=== PATIENT | female | born 1930 | race Caucasian/White ===

== ENCOUNTER 2016-12-29 15:48 | Inpatient (IN) | payer OTHER ==
[2016-12-29] MEDS ORDERED: LASIX IV ONE (16:19)
[2016-12-29 16:22] LABS: MANUAL DIFF NEEDED? NO
[2016-12-29 16:27] LABS: BASO% 0.2 % (0.0-0.8); EOS# 0.04 X1000 (0.0-0.7); EOS% 0.7 % (0.0-10.0); HEMATOCRIT 32.5 % (37.0-47.0); HEMOGLOBIN 11.1 g/dL (12.0-16.0); IMM GRAN# 0.02 X1000 (0.0-0.04); IMM GRAN% 0.3 % (0.0-0.5); LYMPH% 11.5 % (20.5-51.1); MCH 28.2 PG (27-31); MCHC 34.2 g/dL (33-37); MCV 82.7 FL (81-99); MONO# 0.78 X1000 (0.11-0.59); MONO% 12.8 % (1.7-9.3); MPV 8.5 FL (7.4-10.4); NEUT% 74.5 % (42.2-75.2); PLT 251 X1000 (130-400); RBC 3.93 XMIL (4.2-5.4)
[2016-12-29 16:35] LABS: INR 1.13; PTT 30.1 Seconds (22.0-36.0)
--- NOTE | 2016-12-29 16:40 | PROVIDER DOCUMENTATION ---
HPI-General Adult - General Source: patient - History of Present Illness -Gen Adult Nature of Presenting Problems: Reports to er with cc of edema. Pt was sent from pcp with complaints of gaining 30 lbs in 1 month. PCP . Pt reports bilateral hand swelling. Pt reports she would like to be a DNR. Denies sob,n,f,v. Reports is having weakness. Location of Pain/Injury: reports: generalized Quality of Pain: reports: none Severity: reports: severe Onset/Duration: reports: other (1mo) Timing: reports: still present Similar Symptoms Previously?: No Recently seen or treated by another doctor?: Yes - General Chief Complaint: Edema Stated Complaint: WEAKNESS,SOB,BILA HAND SWOLLEN Time Seen by Provider: 12/29/16 16:00 Allergies/Adverse Reactions: Patient Allergies Allergy/AdvReac Type Severity Reaction Status Date / Time No Known Allergies Allergy Verified 12/29/16 16:32 Home Medications: Home Medication List Medication Instructions Recorded Confirmed Last Taken Type Aspirin 81 mg PO DAILY 12/29/16 12/29/16 12/29/16 History Review of Systems - Adult - REVIEW OF SYSTEMS - ADULT Constitutional: reports: other (general weakness). denies: chills, fever, fatique, weight gain, weight loss Eyes: reports: no symptoms reported Ears, Nose, Mouth & Throat: reports: no symptoms reported Cardiovascular: reports: edema. denies: chest pain, irregular heart rate, orthopnea, syncope Respiratory: reports: no symptoms reported Gastrointestinal: denies: abdominal pain, diarrhea, nausea, vomiting Genitourinary: reports: no symptoms reported Musculoskeletal: reports: see HPI, other (edema). denies: joint pain, joint swelling, muscle weakness, neck pain Integumentary: reports: no symptoms reported Neurological: reports: no symptoms reported Psychiatric: reports: no symptoms reported Endocrine: reports: no symptoms reported Hematologic/Lymphatic: reports: no symptoms reported Allergic/Immunologic: reports: no symptoms reported All Other Systems: Reviewed and Negative Past History - Adult - PAST MEDICAL HISTORY-ADULT Review of Records: reports: Nursing Assessment Review, Medications Reviewed Major Childhood Illnesses: reports: denies history Cardiovascular: reports: A-Fib - PRIOR SURGERIES/PROCEDURES Surgical/Procedure History: reports: orthopedic (extremity) (left hip) - IMMUNIZATION STATUS Childhood Immunizations: See Nurse Assessment Flu Vaccine: See Nurse Assessment - FAMILY HISTORY Family History: reviewed, not pertinent - SOCIAL HISTORY Smoking: denies Substance Use: none/never Physical Exam-General - PHYSICAL EXAM-ADULT Initial Vital Signs Reviewed: Yes - CONSTITUTIONAL General Appearance: alert, mild distress. negative: appears well - EYES Eyes: PERRL/EOMI - HEAD, EARS, NOSE, MOUTH & THROAT HENMT: moist mucous membranes, normal ENT inspection, TMs normal, pharynx normal - NECK Neck: non-tender, full range of motion, supple, normal inspection - RESPIRATORY Respiratory: chest non-tender, no pleuratic chest pain, no respiratory distress , no accessory muscle use, decreased breath sounds - CARDIOVASCULAR Cardiovascular: regular rate, rhythm - GASTROINTESTINAL (ABDOMEN) Abdominal Exam: soft, no organomegaly, no pulsatile mass - MUSCULOSKELETAL Back Exam: normal inspection Extremity: normal range of motion, no calf tenderness, pedal edema, other ( bilateral hand and feet edema 4 plus) - SKIN Integumentary: normal color, normal turgor, warm/dry - NEUROLOGIC Neurologic: top executive II-XII nml as tested, grossly normal, no motor/sensory deficits - PSYCHIATRIC Psych/Mental Status: normal mood/affect, normal thought content, normal thought process, oriented x 3 Progress - PLAN OF CARE/RESULTS Progress/Plan/Lab Results: Orders Category Date Time Status Finley Cath Insertion ORDERED Care 12/29/16 16:19 Active cxr [CHEST-PORTABLE] [RAD] Stat Exams 12/29/16 16:17 Taken BNP [PRO B-NATRIURETIC PEPTIDE] Stat Lab 12/29/16 16:14 Received CBC WITH ELECTRONIC DIFF [HEME] Stat Lab 12/29/16 16:14 Completed CMP [COMPREHENSIVE METABOLIC PANEL] [CHEM] Stat Lab 12/29/16 16:14 Received PROTIME WITH INR [COAG] Stat Lab 12/29/16 16:10 Completed PTT [COAG] Stat Lab 12/29/16 16:10 Completed UA NIMS W/REFLEX CULT [URINALYSIS] Stat Lab 12/29/16 16:01 Uncollected Furosemide [Lasix] Med 12/29/16 16:19 Discontinued 40 mg IV NOW ONE EKG [EKG] Stat Ther 12/29/16 16:17 Ordered Vital Signs - 24 hr 12/29/16 15:56 Temperature 97.5 F L Pulse Rate 81 Respiratory 18 Rate Blood Pressure 156/109 O2 Sat by Pulse 100 Oximetry Laboratory Tests 12/29/16 12/29/16 12/29/16 16:10 16:14 16:14 WBC 6.10 RBC 3.93 L Hgb 11.1 L Hct 32.5 L MCV 82.7 MCH 28.2 MCHC 34.2 RDW Std Deviation 14.9 H Plt Count 251 MPV 8.5 Immature Gran % (Auto) 0.3 Neut % (Auto) 74.5 Lymph % (Auto) 11.5 L Bullitt % (Auto) 12.8 H Eos % (Auto) 0.7 Baso % (Auto) 0.2 Immature Gran # (Auto) 0.02 Neut # (Auto) 4.55 Lymph # (Auto) 0.70 L Bull[place] # (Auto) 0.78 H Eos # (Auto) 0.04 Baso # (Auto) 0.01 PT 12.0 H INR 1.13 PTT (Actin FS) 30.1 Sodium 116 L* Potassium 3.7 Chloride 79 L Carbon Dioxide 26 Anion Gap 11 BUN 14 Creatinine 0.5 Estimated GFR/1.73 m2 > 60 BUN/Creatinine Ratio 28 Glucose 132 H Calculated Osmolality 237 Calcium 8.2 L Total Bilirubin 0.85 AST 31 H ALT 19 Alkaline Phosphatase 113 H Ctb-B-Otfxqtaeyci Pept Total Protein 6.5 Albumin 3.4 L Globulin 3.1 Albumin/Globulin Ratio 1.1 12/29/16 16:14 WBC RBC Hgb Hct MCV MCH MCHC RDW Std Deviation Plt Count MPV Immature Gran % (Auto) Neut % (Auto) Lymph % (Auto) Bullitt % (Auto) Eos % (Auto) Baso % (Auto) Immature Gran # (Auto) Neut # (Auto) Lymph # (Auto) Bullitt # (Auto) Eos # (Auto) Baso # (Auto) PT INR PTT (Actin FS) Sodium Potassium Chloride Carbon Dioxide Anion Gap BUN Creatinine Estimated GFR/1.73 m2 BUN/Creatinine Ratio Glucose Calculated Osmolality Calcium Total Bilirubin AST ALT Alkaline Phosphatase Tdq-O-Ncsrsowiigl Pept 3373 H Total Protein Albumin Globulin Albumin/Globulin Ratio 1703 Dr.Quansah calvo - XRAY 1 XRAY: Bilateral XRAY Study: Chest Impression: Abnormal XRAY Interpretation: worse cardiomegaly and pleural effusions (yalowitz) - CONSULTS/PCP/HOSPITALIST Notification #1 *Consult/PCP/Hospitalist*: DR.Quansah Time Discussed: 17:08 Consult Disposition: Admit Departure - Departure Time of Disposition Order: 17:02 Certified Medical Emergency: Emergent - Departure DIAGNOSIS: Hyponatremia Edema Qualifiers: Edema type: unspecified Qualified Code(s): R60.9 - Edema, unspecified Atrial fibrillation Qualifiers: Atrial fibrillation type: chronic Qualified Code(s): I48.2 - Chronic atrial fibrillation Disposition: ADMITTED INPATIENT 09 Condition: Stable Referrals: Pretty Asif MD [Primary Care Provider] - Attestation - Scribe Verification/Attestation Scribe:: Mary Blevins Acting as Scribe for:: Juan Sheridan Scribe documention review:: This chart was documented by a scribe and accurately reflects the service the provider performed and the decisions made by the provider. Physician Attestation - Physician Attestation I, the provider, attest to the following statement:: Juan Sheridan Physician documentation Attestation:: This documentation recorded by the scribe accurately reflects the service I personally performed and the decisions made by me.
[2016-12-29 16:55] LABS: AGAP 11; ALBUMIN 3.4 g/dL (3.5-5.0); ALKALINE PHOSPHATASE 113 U/L (32-104); BUN 14 mg/dL (8-22); CALCIUM 8.2 mg/dL (8.8-10.2); CHLORIDE 79 mmol/L (98-107); COSMO 237; GOT 31 U/L (10-30); GPT 19 U/L (10-36); POTASSIUM 3.7 mmol/L (3.5-5.1); TCO2 26 mmol/L (25-35); TOTAL BILIRUBIN 0.85 mg/dL (0.20-1.00); TOTAL PROTEIN 6.5 g/dL (6.3-8.3)
[2016-12-29 16:59] LABS: SODIUM 116 mmol/L (136-145)
--- NOTE | 2016-12-29 17:03 | Diag Imaging Result Document ---
PROCEDURE NAME: CHEST-PORTABLE - 12/29/2016 PORTABLE CHEST: COMPARISON: 10/01/2016. FINDINGS: There is worsening cardiomegaly. There are new pleural effusions. Pulmonary vessels remain congested. IMPRESSION: Worsening cardiomegaly and pleural effusion.
[2016-12-29 17:15] LABS: URINE CULTURE NEEDED? NO; URINE SOURCE CLEAN CATCH
[2016-12-29 17:20] LABS: BILIRUBIN URINE NEGATIVE (NEGATIVE); BLOOD URINE NEGATIVE (NEGATIVE); COLOR YELLOW; GLUCOSE URINE NEGATIVE (NEGATIVE); LEUKOCYTES URINE NEGATIVE (NEGATIVE); NITRITE URINE NEGATIVE (NEGATIVE); PROTEIN URINE 200 mg/dL (NEGATIVE); SP GRAVITY URINE 1.027; TURBIDITY URINE HAZY (CLEAR); URINE MICRO REVIEW NEEDED? YES; UROBILINOGEN URINE 3 mg/dL (NORMAL)
[2016-12-29 17:24] LABS: UR EPITHELIAL CELLS <10 /HPF (<10); URINE BACTERIA NEGATIVE /HPF; URINE RBC <10 /HPF (<10); URINE WBC <10 /HPF (<10)
--- NOTE | 2016-12-29 17:27 | ED EKG INTERP ---
EKG Interpretation - EKG Time of EKG reading by physician:: 17:14 EKG Read and Signed by:: Juan Sheridan EKG Interpretation (*Must complete 3 of following elements*): Abnormal Rate: 79 Rhythm: afib [place]: right QRS: other (low voltage) ST Wave: non-specific ST changes Attestation - Scribe Verification/Attestation Scribe:: Mary Blevins Acting as Scribe for:: Juan Sheridan Scribe documention review:: This chart was documented by a scribe and accurately reflects the service the provider performed and the decisions made by the provider. Physician Attestation - Physician Attestation I, the provider, attest to the following statement:: Juan Sheridan Physician documentation Attestation:: This documentation recorded by the scribe accurately reflects the service I personally performed and the decisions made by me.
[2016-12-29 17:33] LABS: URINE CRYSTALS CA OXALATE PRESENT
[2016-12-29 18:21] LABS: UR CREAT RANDOM 187.3 mg/dL (11-20)
--- NOTE | 2016-12-29 18:52 | HISTORY AND PHYSICAL ---
PCP: Dr. Asif. CHIEF COMPLAINT: Weakness and swelling. HISTORY OF PRESENT ILLNESS: Mrs. King is an 86-year-old female who has a recently diagnosed history of atrial fibrillation and hypertension, she has a longstanding history of medical noncompliance. She saw us in September after she had an accidental fall and fractured her hip, at that time she was diagnosed with atrial fibrillation. She had successful hip fracture repair and was seen by Cardiology for her atrial fibrillation. At that time she had an echocardiogram which revealed severe tricuspid regurgitation and systolic pulmonary pressure of 113 mmHg giving her the diagnosis of severe pulmonary artery hypertension. When she was discharged in September she was discharged on Eliquis, Colace, Toprol and vitamin D, apparently the patient thinks that she does not have any medical problems and does not need to take any medications. At any rate, she went to Dr. Asif's office today because she has had progressive weakness unable to really walk around, she has reported shortness of breath and bilateral upper extremity edema. When she came to Dr. Asif's office Dr. Asif felt that the patient needed to come to the ER for evaluation. On arrival to the ER the patient had labs and diagnostics done. Her laboratory data was consistent with hypervolemic hyponatremia, mild anemia and an elevated proBNP. Chest x- ray showed severe cardiomegaly, pulmonary vascular congestion, bilateral pleural effusions consistent with congestive heart failure. Again the patient is quite agitated at her diagnosis, she believes that she does not have any medical problems and that she has been just fine and this is despite repeated attempts to explain diastolic heart failure and tricuspid regurgitation in a language that she can understand. We are now going to admit her for further treatment and evaluation. PAST MEDICAL HISTORY: 1. Chronic atrial fibrillation. 2. Medical noncompliance. 3. Untreated hypertension. 4. Severe pulmonary artery hypertension. 1. Severe tricuspid regurgitation. PAST SURGICAL HISTORY: Tonsillectomy, cataract surgery, bilateral vein stripping for varicose veins, left hip repair. SOCIAL HISTORY: Patient denies tobacco, alcohol or drug use. She is and lives with her daughter. FAMILY HISTORY: Significant for hypertension, cardiomegaly, brain cancer in her daughter who 2 years ago. HOME MEDICATIONS: Currently aspirin 81 mg daily although she was prescribed Eliquis, metoprolol and vitamin D. ALLERGIES: No known drug allergies. REVIEW OF SYSTEMS: A 10-point review of systems was obtained. The patient denies any subjective complaints. However her daughter reports progressive weakness and visible shortness of breath as well as generalized edema. The patient herself denies any chest pain or shortness of breath. She denies any weakness. No fever, chills, cough, congestion or other symptomatology. PHYSICAL EXAMINATION: VITAL SIGNS: Blood pressure is 156/109, heart rate 81, respiratory rate is 18, O2 saturation 100% on room air. Temperature is 97.5 degrees. GENERAL: This is a chronically ill and elderly appearing 86-year-old female lying in hospital bed in no acute distress. NEUROLOGIC: She is awake, alert and she is quite agitated. She is however unable to tell me what month it is, who the president is or what day of the week it is. She is able to tell me her name and the year. HEENT: Head is atraumatic and normocephalic. Pupils are equal, round, reactive to light. Oral mucosa is dry. Trachea is midline. There is obvious JVD and no bruits in the carotid arteries. CHEST: Bibasilar crackles. CV: Regular rate and rhythm. S1-S2 is noted. Diastolic murmur is appreciated at the level of 1 to 2/6. GI: Soft, nondistended, nontender. Bowel sounds are hypoactive. EXTREMITIES: Chronic venous stasis is noted and she has 1 to 2+ edema bilaterally. Pulses are palpable but diminished. DIAGNOSTIC DATA: Chest x-ray shows severe cardiomegaly with pulmonary vascular congestion and pleural effusions. EKG. Atrial fibrillation, rate controlled at 79 beats a minute with nonspecific ST changes. WBC 6.1, hemoglobin 11.1, hematocrit 32.5, platelet count 251,000. INR 1.13. Sodium 116, potassium 3.7, chloride 79, CO2 26, anion gap 11, BUN 14, creatinine 0.5, glucose 132, calcium 8.2, AST 31, ALT 19, alkaline phosphatase 113, proBNP 3373, albumin 3.4, TSH is 8.14, T4 is 4.86. Urinalysis shows 200 protein and calcium oxalate crystals present but nothing acute. ASSESSMENT/PLAN: 1. Severe diastolic heart failure: Secondary to her severe pulmonary artery hypertension, untreated hypertension and severe tricuspid regurgitation. Obviously the patient is going to need significant education and change to her medication regimen. For now we are going to start with light IV diuretics. We do not want to over diurese her given her diastolic heart failure and severe TR. We will monitor strict I's and O's and daily weights and we will get cardiology to consult for further management. We are also going to start her on low-dose digoxin and monitor telemetry and hemodynamics carefully. 2. Chronic atrial fibrillation: Rate is controlled. We will add digoxin and continue the Eliquis which was recommended by cardiology in September and get Cardiology recommendation. 3. Hypertension: For now we are going to add p.r.n. antihypertensives and defer cardiology for specific medication regimen. 4. Hypervolemic hyponatremia: This is certainly secondary to her congestive heart failure, we are going to lightly diuresis and check urine studies. We are going to follow her BMP every 6 hours to make sure we are not increasing her sodium too fast. 5. Subclinical hypothyroidism: TSH is 8, T4 is within normal range. Given her congestive heart failure symptoms, she could certainly stand to start on Synthroid. 6. Chronic anemia: Will check iron studies and treat appropriately. 7. Gastrointestinal prophylaxis will be provided with IV Protonix. Deep vein thrombosis prophylaxis with Eliquis. Further recommendations to follow. Dictated by ROHAN Rojas for Jose Carlos Tapia MD
[2016-12-29] MEDS ORDERED: APRESOLINE IV PRN (18:54)
[2016-12-29] MEDS ORDERED: DUONEB (A & A) INH PRN (18:54)
[2016-12-29] MEDS: DUONEB (A & A) INH SCH ×2 (19:27→23:30)
[2016-12-29 19:37] LABS: HEMOGLOBIN A1C 5.6 % (4.8-6.0)
[2016-12-29] MEDS: LANOXIN PO SCH (21:10)
[2016-12-29] MEDS: PROTONIX IV SCH (21:10)
[2016-12-29] MEDS: ELIQUIS PO SCH (21:10)
[2016-12-29 21:53] LABS: AGAP 15; BUN 12 mg/dL (8-22); CHLORIDE 80 mmol/L (98-107); COSMO 244; POTASSIUM 3.4 mmol/L (3.5-5.1); SODIUM 121 mmol/L (136-145); TCO2 26 mmol/L (25-35)
[2016-12-30 03:15] LABS: AGAP 14; BUN 11 mg/dL (8-22); CALCIUM 7.7 mg/dL (8.8-10.2); CHLORIDE 81 mmol/L (98-107); COSMO 244; POTASSIUM 3.5 mmol/L (3.5-5.1); SODIUM 121 mmol/L (136-145); TCO2 26 mmol/L (25-35)
[2016-12-30] MEDS: DUONEB (A & A) INH SCH ×6 (03:30→23:31)
[2016-12-30 07:23] LABS: HEMATOCRIT 29.5 % (37.0-47.0); HEMOGLOBIN 9.9 g/dL (12.0-16.0); MCH 27.8 PG (27-31); MCHC 33.6 g/dL (33-37); MCV 82.9 FL (81-99); MPV 8.7 FL (7.4-10.4); RBC 3.56 XMIL (4.2-5.4)
[2016-12-30 07:50] LABS: IRON SATURATION 5 %; TIBC 303 ug/dL
[2016-12-30 07:53] LABS: AGAP 12; BUN 11 mg/dL (8-22); CALCIUM 7.9 mg/dL (8.8-10.2); CHLORIDE 84 mmol/L (98-107); COSMO 249; HDL 78 mg/dL (45-65); LDL 51 mg/dL; POTASSIUM 3.5 mmol/L (3.5-5.1); SODIUM 124 mmol/L (136-145); TCO2 28 mmol/L (25-35); TOTAL IRON 15 ug/dL (49-151); TRIGLYCERIDES 46 mg/dL (35-135); UNBOUND IRON 288 ug/dL (112-346); VLDL 9 mg/dL
[2016-12-30] MEDS: ELIQUIS PO SCH ×2 (08:28→20:25)
[2016-12-30] MEDS: ASPIRIN PO SCH (08:28)
[2016-12-30] MEDS: LANOXIN PO SCH (08:28)
[2016-12-30] MEDS ORDERED: LASIX IV SCH (09:00)
[2016-12-30] MEDS ORDERED: SAMSCA PO ONE (10:50)
--- NOTE | 2016-12-30 11:39 | CONSULTATION ---
DATE OF CONSULTATION: 12/30/2016 IMPRESSION: 1. Atrial fibrillation, persistent. 2. Acute on chronic congestive heart failure of mixed etiology. The patient's congestive heart failure is largely right-sided heart failure in the setting of severe pulmonary hypertension. 3. Associated hyponatremia. 4. Congestive impairment. Suspect underlying dementia, although patient's cognitive impairment may be in part related to her hyponatremia and possible hypothyroidism. 5. Hypertension with blood pressure mildly elevated. RECOMMENDATIONS: 1. Diurese with intravenous Lasix. 2. Treat hyponatremia with [id number] mg daily. 3. Add long-acting diltiazem to improve rate control in patient with severe pulmonary hypertension. 4. Determine urine and serum osmolality and sodium levels. 5. If patient's congestive function fails to improve, may need to consider [facility] facility. 6. Given patient's functional impairment, age, and severe pulmonary hypertension, conservative cardiovascular management would appear to be most appropriate. 7. Anticoagulation with low-dose Eliquis appropriate given patient's thromboembolic potential in setting of atrial fibrillation. The patient has significant CHADS-VASc score. HISTORY: This 86-year-old female with past history of atrial fibrillation, hypertension, severe pulmonary hypertension, and medical noncompliance was admitted with weakness, atrial fibrillation, and significant edema. She has been found to have evidence of congestive heart failure and is in atrial fibrillation. She has been noncompliant with medications previously prescribed for hypertension and atrial fibrillation. She previously had been placed on low-dose Eliquis for thromboembolic risk protection. She relates that she has had recent weakness. She was seen by her primary care provider who noted her condition and sent her directly to the hospital for admission. The patient is not fully aware of her medical condition. She is somewhat confused, as well. She believes the month to be May, but she does know the correct year. She is not fully aware of why she is here. PAST MEDICAL HISTORY: 1. Atrial fibrillation, persistent. 2. Hypertension. 3. Severe pulmonary hypertension. 4. Congestive heart failure of mixed etiology both right-sided systolic and left ventricular diastolic. 5. Medical noncompliance. PAST SURGICAL HISTORY: Includes tonsillectomy, cataract surgery, bilateral vein stripping for varicose veins, and left hip repair. ALLERGIES: She has no known drug allergies. MEDICATIONS PRIOR TO ADMISSION: As listed. It is noteworthy that she was not taking prescribed medications. SOCIAL HISTORY: She is and lives with her daughter. She does not smoke or use alcohol. FAMILY HISTORY: Negative for premature coronary disease and positive for hypertension. REVIEW OF SYSTEMS: Pulmonary: Negative for orthopnea or cough. She relates weakness but no significant dyspnea. Gastrointestinal: Negative. Constitutional: Noteworthy for fatigue and weakness but otherwise negative. Remainder of review of systems negative/noncontributory with 14 total systems reviewed. PHYSICAL EXAMINATION: General: This is an elderly female in no distress. Vital signs: As recorded. She is noted to have hypertension with blood pressure 160/100. Heart rate is 80 to 85 and irregular. HEENT: Extraocular movements intact. Mucous membranes are moist. Neck: Supple. Jugular vein distention is present consistent with central venous pressure of 12 cm of more. Chest: Clear to auscultation. Cardiac: Reveals an irregular rate and rhythm without appreciable murmur or gallop. Abdomen: Soft and nontender. Extremities: Demonstrate 3+ pitting edema to the level of the thigh bilaterally. Neurologic: Exam reveals her to be alert. She is oriented to person, place, and year but not to the month. Memory is very sketchy. Speech is fluent. She moves all 4 extremities equally well. Skin: Warm and dry. Psychiatric: Exam reveals her mood to be appropriate. ECG: Demonstrates atrial fibrillation and low-voltage QRS. LABORATORY DATA: Noteworthy for hyponatremia with serum sodium of 116. BUN 14, creatinine 0.5. ProBNP is 3373. Albumin 3.4. Calcium 8.2. TSH is 8.14. IMAGING: Chest x-ray reports cardiomegaly and bilateral pleural effusions.
--- NOTE | 2016-12-30 11:44 | Diag Imaging Result Document ---
PROCEDURE NAME: US SOFT TISSUE HEAD NECK - 12/30/2016 THYROID ULTRASOUND: COMPARISON: None available. FINDINGS: At the inferior aspect of the left thyroid lobe, there is a hypoechoic round nodule measuring 1.0 x 0.8 x 0.7 cm. This may represent an enlarged parathyroid gland or an exophytic left thyroid lobe nodule. I suppose it could also represent a lymph node. The thyroid is, otherwise, homogeneous in echotexture with no other discrete cystic or solid lesion. The right thyroid lobe measures 2.9 x 1.0 x 1.0 cm. The left thyroid lobe measures 2.8 x 1.1 x 0.8 cm. IMPRESSION: Nonspecific round hypoechoic nodule at the inferior aspect of the left thyroid lobe that may represent an enlarged parathyroid gland. Please see the above discussion. Consider correlation with serum calcium studies.
[2016-12-30] MEDS: CARDIZEM CD PO SCH (12:14)
[2016-12-30 13:29] LABS: AGAP 12; BUN 11 mg/dL (8-22); CALCIUM 7.9 mg/dL (8.8-10.2); CHLORIDE 81 mmol/L (98-107); COSMO 246; POTASSIUM 3.3 mmol/L (3.5-5.1); SODIUM 122 mmol/L (136-145); TCO2 29 mmol/L (25-35)
--- NOTE | 2016-12-30 14:43 | Diag Imaging Result Document ---
PROCEDURE NAME: LUNG SCAN / VQ - 12/30/2016 VENTILATION PERFUSION LUNG SCAN: TECHNIQUE AND FINDINGS: Patient received 5.6 mCi of technetium-99m MAA for the perfusion portion of the study and 37.5 mCi of technetium-99m DTPA aerosol for the ventilation portion. Most recent previous chest radiograph is from 12/29/2016. There is no evidence of ventilation perfusion mismatch. No evidence of absolute segmental or subsegmental perfusion defects is present. There is some attenuation over the left lower lobe due to the large cardiomediastinal silhouette and apparent pleural effusion seen on the chest radiograph. IMPRESSION: Low probability for pulmonary embolus.
--- NOTE | 2016-12-30 14:49 | PROGRESS NOTE ---
DATE: 12/30/2016 SUBJECTIVE: Today, Ms. King referred to be doing okay. According to her, she does not have any medical problem and she really wants to go home. OBJECTIVE: Vital signs: Blood pressure is 134/77, pulse of 79, respirations 16 , temperature is 98.4 degrees. General: Ms. King is an 86-year-old female. She was in bed and seems to be in mild respiratory distress. HEENT: Mucosa is pink and moist. Anicteric. Acyanotic. Neck: Supple. There is positive JVD. Chest: Air entry is bilaterally reduced. There are some end-expiratory wheezes. Cardiovascular: Irregularly irregular heart rate but rate controlled. No murmurs. Abdomen: Distended but nontender. Bowel sounds are present. Extremities: About 4+ pedal edema. SIDE STAPLER: Patient is alert, oriented, but does not really seem to understand the gravity of her medical issues. LABORATORY DATA: WBC is 4.48, hemoglobin is 9.9, platelet count of 208,000. ESR 3. CRP is low. Sodium is 122 potassium is 3.2, chloride is 81, bicarbonate is 29 creatinine 0.4. ASSESSMENT: 1. Fluid overload likely due to congestive heart failure. 2. Severe pulmonary hypertension. Etiology is unclear. I think it is probably due to heart disease however patient also has remote history of smoking so some chronic obstructive pulmonary disease or primary pulmonary disease cannot be completely ruled out. 3. Diastolic heart failure due to atrial fibrillation. 4. Subclinical hypothyroidism. 5. Severe hyponatremia likely due to fluid overload. 6. Impaired cognition/judgment. 7. Folate deficiency. PLAN: 1. The patient has already been seen by Cardiology and has been given a dose of Samsca. We will follow up on her sodium levels. Because of the subclinical hypothyroidism we will going to do a thyroid scan to see if the patient has any goiter that would warrant treatment. 2. We will also do a TPO to see if she does have receptors to warrant treatment. 3. In terms of the severe pulmonary hypertension Cardiology has evaluated the patient and we will also do a V/Q scan to rule out possibility of chronic thromboembolic pulmonary hypertension (CTEPH). 4. Continue with the current recommendations from Cardiology and will give further recommendations during the hospital course. 5. We will also give folate supplements for the deficiencies. 6. We will consult Pulmonary Medicine also to evaluate the patient for the severe pulmonary hypertension. I will do BRENDA and inflammatory marker just to have baseline studies to make sure there is not any rheumatological/collagen and vascular etiology of this severe pulmonary hypertension. NYDIA
[2016-12-30] MEDS: LASIX IV SCH (18:46)
[2016-12-30] MEDS: SODIUM CHLORIDE 0.9% INJ SCH (18:46)
[2016-12-30] MEDS: PROTONIX IV SCH (18:46)
[2016-12-31] MEDS: LASIX IV SCH ×2 (01:37→09:46)
[2016-12-31] MEDS: DUONEB (A & A) INH SCH ×6 (03:21→23:17)
[2016-12-31 07:15] LABS: HEMATOCRIT 32.6 % (37.0-47.0); HEMOGLOBIN 10.6 g/dL (12.0-16.0); MCH 28.2 PG (27-31); MCHC 32.5 g/dL (33-37); MCV 86.7 FL (81-99); MPV 8.1 FL (7.4-10.4); RBC 3.76 XMIL (4.2-5.4)
[2016-12-31 07:47] LABS: AGAP 12; BUN 8 mg/dL (8-22); CALCIUM 8.1 mg/dL (8.8-10.2); CHLORIDE 89 mmol/L (98-107); COSMO 270; POTASSIUM 2.7 mmol/L (3.5-5.1); SODIUM 136 mmol/L (136-145); TCO2 35 mmol/L (25-35)
[2016-12-31] MEDS ORDERED: MAGNESIUM SULFATE 2 GM/S.W.I. 50 ML IV ONE (08:46)
[2016-12-31] MEDS ORDERED: KLOR-CON PO ONE (08:46)
[2016-12-31] MEDS: LANOXIN PO SCH (09:46)
[2016-12-31] MEDS: ELIQUIS PO SCH ×2 (09:46→21:21)
[2016-12-31] MEDS: ASPIRIN PO SCH (09:46)
[2016-12-31] MEDS: CARDIZEM CD PO SCH (09:47)
--- NOTE | 2016-12-31 12:24 | PROGRESS NOTE ---
DATE: 12/31/2016 Today Ms. King referred to be doing okay. Denies any pain. OBJECTIVE: Vital signs: Blood pressure is 139/72, pulse of 78, respirations 18, temperature is 98.1 degrees. General: Ms. King is an 86-year-old female. She is in bed, not seemingly distressed. HEENT: Mucosa is pink and moist. Anicteric. Acyanotic. Neck: Supple. Chest: Good air entry bilaterally. There are a few bibasilar crepitations. Cardiovascular: Irregularly irregular heart rate that is rate controlled. No murmurs. There is a pronounced P2. Abdomen: Soft, distended, but nontender. Bowel sounds are present. Extremities: About 3+ pedal edema. FOREIGN LAW CONSULTANT: Patient is alert, oriented to person and to place. Musculoskeletal: The lower extremities, the toes have changes consistent with osteoarthritis. LABORATORY DATA: CBC reviewed, unremarkable. Chemistry reviewed. Potassium is 3.7, sodium has normalized. It is 136 today. The thyroid peroxidase antibody is normal. ASSESSMENT: 1. Fluid overload likely due to congestive heart failure. 2. Severe pulmonary hypertension. Etiology is unclear. Patient has an echo in September 2016 which shows a pulmonary systolic pressure of 113 consistent with severe pulmonary hypertension. I think the etiology is probably related with heart disease. So far, the V/Q scan was unremarkable for any chronic thromboembolic events and the patient does not have a significant pulmonary disease. 3. Diastolic heart failure likely due to atrial fibrillation. 4. Subclinical hypothyroidism. Anti TPO is negative. Patient's cholesterol is normal. We would therefore just observe. 5. Severe hyponatremia with hypervolemia improving. 6. Impaired cognition likely from Alzheimer's. 7. Folate deficiency. We will continue to replace. In general, patient has a urine output of 12,900. I am not quite sure if this is a true documentation for a total negative balance of 17,350. Patient's current weight is 141, admission weight was 178. This is a net weight loss of 37 pounds. We will continue with her current medications and we will do strict I's and O's and repeat her lab works for tomorrow morning. I will consult social work for rehab placement on this patient.
[2016-12-31] MEDS: PROTONIX IV SCH (21:21)
[2017-01-01] MEDS: DUONEB (A & A) INH SCH ×6 (02:55→23:12)
[2017-01-01 07:58] LABS: HEMOGLOBIN 10.2 g/dL (12.0-16.0); MCH 27.9 PG (27-31); MCHC 31.9 g/dL (33-37); MCV 87.4 FL (81-99); MPV 8.4 FL (7.4-10.4); RBC 3.66 XMIL (4.2-5.4)
[2017-01-01 08:08] LABS: AGAP 6; BUN 9 mg/dL (8-22); CALCIUM 7.6 mg/dL (8.8-10.2); CHLORIDE 87 mmol/L (98-107); COSMO 255; POTASSIUM 3.5 mmol/L (3.5-5.1); SODIUM 127 mmol/L (136-145); TCO2 34 mmol/L (25-35)
[2017-01-01] MEDS ORDERED: KLOR-CON PO ONE (08:25)
[2017-01-01] MEDS ORDERED: MAG-OX PO ONE (08:26)
[2017-01-01] MEDS: ASPIRIN PO SCH (08:27)
[2017-01-01] MEDS: LASIX IV SCH (08:27)
[2017-01-01] MEDS: LANOXIN PO SCH (08:28)
[2017-01-01] MEDS: ELIQUIS PO SCH ×2 (08:28→20:31)
[2017-01-01] MEDS: CARDIZEM CD PO SCH (08:28)
--- NOTE | 2017-01-01 16:29 | PROGRESS NOTE ---
DATE: 01/01/2017 Today I saw Ms. King in the afternoon and she was actually eating her lunch without any problems. She refers to be doing fine. OBJECTIVE: Vital signs: Blood pressure is 136/76, pulse of 78, respirations 18 , temperature is 97.7 degrees. General: Ms. King is an 86-year-old, female. She was in bed. Not seemingly distress. HEENT: Mucosa is pink and moist. Anicteric. Acyanotic. Neck: Supple. Chest: A few bibasilar crepitations. Cardiovascular: Irregularly irregular heart rate. No murmurs. There was a pronounced P2. Abdomen: Soft, distended, but nontender. Bowel sounds are present. Extremities: About 2+ pedal edema. There are old scaly lesions on the lower extremity consistent with stasis dermatitis and also on the toes are consistent with severe osteoarthritis. Patient also has swelling on the left upper limb with some bruises medially on the arm which I think is consistent with where she had IV access and that got infiltrated. There is mild swelling of the right knee and limited ROM. No erythema. ASSESSMENT: 1. Fluid overload likely due to congestive heart failure. 2. Severe pulmonary hypertension. The etiology is unclear. I think is related to heart disease. So far, V/Q scan and other inflammatory markers seem to have been negative. 3. Diastolic heart failure. 4. Atrial fibrillation currently rate controlled. 5. Subclinical hypothyroidism with anti TPO negative. Cholesterol normal. 6. Severe hyponatremia on presentation. This has been improved. 7. Impaired cognition likely from mild Alzheimer's. 8. Folate deficiency. We will continue to replace. 9. Mild swelling to the left upper extremity secondary to infiltration from IV access. 10. Right Knee mild swelling likely from OA vs gout. PLAN: We will continue with the current medications. Patient is on Eliquis, digoxin, diltiazem, furosemide and PPI. She seems to be doing a whole lot better clinically. We will continued to monitor I's and O's and we will continue working with the social media manager for placement. Addendum: I spoke with the daughter on [phone] she expressed her concerns about her mum's knee and left arm swelling I told her the arm swelling is likely from iv access infiltration and as for the knee its possible it could be osteoarthritis or a flare of gout since patient was on high dosis of lasix. She was under impression that her mother knee hurts because she is been left in a place without movement since her mother has been admitted. She refers that anytime she comes to the hospital, she finds her mother in the same exact position. I told her, i cant certify the veracity in that since I see her mother for couple minutes only for the day. And that she could discuss that with her nurses. In any case, I told her I examined her mother's knee and didn't look septic nor broken and that my thought was like OA vs gout. I also told her if by the following day, the knee is getting worse, I will x-ray it and consult orthopedics MTDD
[2017-01-01] MEDS: MAG-OX PO SCH (20:31)
[2017-01-01] MEDS: SODIUM CHLORIDE 0.9% INJ SCH (20:32)
[2017-01-01] MEDS: PROTONIX IV SCH (20:32)
[2017-01-02] MEDS: DUONEB (A & A) INH SCH ×6 (03:30→23:23)
[2017-01-02 07:38] LABS: AGAP 12; BUN 12 mg/dL (8-22); CALCIUM 8.4 mg/dL (8.8-10.2); CHLORIDE 81 mmol/L (98-107); COSMO 251; POTASSIUM 3.2 mmol/L (3.5-5.1); SODIUM 124 mmol/L (136-145); TCO2 31 mmol/L (25-35); URIC ACID 2.4 mg/dL (2.4-5.7)
[2017-01-02] MEDS ORDERED: SAMSCA PO ONE (08:33)
[2017-01-02] MEDS ORDERED: KLOR-CON PO ONE (08:34)
--- NOTE | 2017-01-02 09:35 | Diag Imaging Result Document ---
PROCEDURE NAME: KNEE 1-2 VIEWS-RIGHT - 01/02/2017 RIGHT KNEE, 2 VIEWS: FINDINGS: There is apparent chondral calcinosis, although it is relatively faint. There are, otherwise, mild osteoarthritic changes. There is apparent thickening of the suprapatellar bursa which is suspicious for joint effusion. There is no fracture or dislocation identified. There are atherosclerotic calcifications noted. IMPRESSION: Apparent faint chondrocalcinosis. Mild osteoarthritic changes otherwise. Apparent joint effusion. No evidence of fracture or dislocation. [facility]rosclerotic calcifications noted. [facility]
[2017-01-02] MEDS: LANOXIN PO SCH (09:44)
[2017-01-02] MEDS: MAG-OX PO SCH ×2 (09:44→20:35)
[2017-01-02] MEDS: LASIX IV SCH (09:44)
[2017-01-02] MEDS: ELIQUIS PO SCH ×2 (09:45→20:34)
[2017-01-02] MEDS: ASPIRIN PO SCH (09:45)
[2017-01-02] MEDS: CARDIZEM CD PO SCH (09:45)
[2017-01-02] MEDS ORDERED: NAPROSYN PO SCH (10:00)
[2017-01-02] MEDS: CELEBREX PO SCH (10:48)
[2017-01-02] MEDS: PRILOSEC PO SCH ×2 (10:48→20:35)
--- NOTE | 2017-01-02 16:41 | PROGRESS NOTE ---
DATE: 01/02/2017 SUBJECTIVE: This morning I saw Ms. King. She was sitting up in her bed. She says she was doing a whole lot better. Did not have any pain in the leg and the shortness of breath has significantly improved. OBJECTIVE: Vital signs: Blood pressure 123/53, pulse of 64, respirations 18, temperature 97.9 degrees. General: Ms. King, 86 years old female. She was sitting up in the bed not in any distress. HEENT: Mucosa is pink and moist. Anicteric. Acyanotic. Neck: Supple. Chest: Good air entry bilateral. There are still a few bibasilar crepitations. Cardiovascular: Irregularly irregular but rate controlled. There is a pronounced P2 but no murmurs. Abdomen: Distended but nontender. Bowel sounds are present. Extremities: There is 1+ pedal edema. The right knee swelling yesterday has significantly improved. There was minimum pain on range of movement. There was also some erythematous changes in swelling over the medial aspect of the left arm where there was an IV access. ASSESSMENT: 1. Fluid overload likely due to congestive heart failure. 2. Severe pulmonary hypertension. Etiology is unclear. I think is related to her heart disease. 3. Diastolic heart failure. 4. Atrial fibrillation currently rate controlled. 5. Subclinical hypothyroidism. 6. Severe hyponatremia on presentation. This has improved. 7. Mild cognitive decline possibly Alzheimer's. 8. Folate deficiency. Will continue to replace. 9. Right knee minimally swollen. An x-ray of the knee shows that there is a faint chondrocalcinosis and mild osteoarthritis changes with thickening of the suprapatellar bursa suspicious for mild joint effusion. I think taking all together the patient has osteoarthritis of the joint as well as some chondrocalcinosis we will start the patient on Celebrex for pain control. 10. In terms of the hyponatremia, please note that the sodium level dropped slightly to 124 this morning so we will re-dose her with tolvaptan and recheck on her sodium tomorrow. 11. Mild swelling to the left upper extremity secondary to intravenous access infiltration. PLAN: In general I think Ms King is doing a whole lot better today. We are going to encourage PT and encourage the team to sit her up to chair. I am going to discontinue the Finley catheter. Will switch her IV Lasix to p.o. in anticipation for discharge. Will continue with the other care as per other subspecialties.
[2017-01-02 16:59] LABS: AGAP 11; BUN 13 mg/dL (8-22); CALCIUM 8.7 mg/dL (8.8-10.2); CHLORIDE 82 mmol/L (98-107); COSMO 255; POTASSIUM 3.6 mmol/L (3.5-5.1); SODIUM 126 mmol/L (136-145); TCO2 33 mmol/L (25-35)
[2017-01-02] MEDS: LASIX PO SCH (20:35)
[2017-01-03] MEDS: DUONEB (A & A) INH SCH ×3 (03:33→22:46)
[2017-01-03] MEDS: PRILOSEC PO SCH ×2 (06:06→21:29)
[2017-01-03 08:18] LABS: AGAP 10; BUN 11 mg/dL (8-22); CALCIUM 8.3 mg/dL (8.8-10.2); CHLORIDE 84 mmol/L (98-107); COSMO 255; POTASSIUM 3.6 mmol/L (3.5-5.1); SODIUM 127 mmol/L (136-145); TCO2 33 mmol/L (25-35)
[2017-01-03] MEDS: ASPIRIN PO SCH (08:37)
[2017-01-03] MEDS: LANOXIN PO SCH (08:38)
[2017-01-03] MEDS: MAG-OX PO SCH ×2 (08:38→21:31)
[2017-01-03] MEDS: CELEBREX PO SCH (08:38)
[2017-01-03] MEDS: ELIQUIS PO SCH ×2 (08:38→21:29)
[2017-01-03] MEDS: CARDIZEM CD PO SCH (08:38)
[2017-01-03] MEDS: LASIX PO SCH ×2 (08:39→21:30)
--- NOTE | 2017-01-03 15:43 | PROGRESS NOTE ---
DATE: 01/03/2017 SUBJECTIVE: This morning Ms. King referred to be doing okay. Did not actually have any complaints except that she wanted to see her daughter. OBJECTIVE: Vital Signs: Stable. Blood pressure is 140/58, pulse of 70, respirations 19, temperature is 97.6 degrees. General: Mr. King is an 86-year-old female. She was in bed. Was not in any distress. HEENT: Mucosa is pink and moist. Anicteric. Acyanotic. Neck: Supple. Chest: Good air entry bilateral. Just a few bibasilar crepitations. Cardiovascular: Irregularly irregular heart rate but rate controlled. There is a pronounced P2. No murmurs. Abdomen: Soft, distended, nontender. Bowel sounds were present. Extremities: Maybe 1+ pedal edema. The right knee swelling is completely resolved. Patient is able to mobilize the knee very well without pain. LABORATORY DATA: Chemistries: Sodium is 127, potassium is 3.6, chloride is 84, bicarb is 33. ASSESSMENT: 1. Fluid overload, likely due to congestive heart failure; improved. 2. Severe pulmonary hypertension. Etiology is unclear. We think it is related to type 2 heart disease. 3. Diastolic heart failure, stable. 4. Atrial fibrillation. Currently rate controlled. 5. Subclinical hypothyroidism. 6. Severe hyponatremia on presentation. This has improved. 7. Mild cognitive decline. Possibly Alzheimer's with delirium. 8. Folate deficiency. We will continue replacing. 9. Right knee chondrocalcinosis and osteoarthritis. Will continue using Celebrex and PT. PLAN: So in general, I think Ms. King is doing a whole lot better. Fluid has been managed very adequately. We appreciate the input of cardiology in the care of this patient. I think the patient is at a point where we will be able to discharge her. She will be pending evaluation tomorrow by the manager social responsibility so that we can discharge her to a rehab center.
[2017-01-03] MEDS ORDERED: MIRALAX PO ONE (16:12)
[2017-01-04] MEDS: DUONEB (A & A) INH SCH ×6 (03:53→23:15)
[2017-01-04] MEDS: PRILOSEC PO SCH ×2 (06:37→21:44)
[2017-01-04 08:09] LABS: AGAP 9; BUN 12 mg/dL (8-22); CALCIUM 8.2 mg/dL (8.8-10.2); CHLORIDE 87 mmol/L (98-107); COSMO 257; POTASSIUM 3.7 mmol/L (3.5-5.1); SODIUM 128 mmol/L (136-145); TCO2 32 mmol/L (25-35)
[2017-01-04] MEDS: ASPIRIN PO SCH (10:20)
[2017-01-04] MEDS: CARDIZEM CD PO SCH (10:20)
[2017-01-04] MEDS: ELIQUIS PO SCH ×2 (10:20→21:44)
[2017-01-04] MEDS: LANOXIN PO SCH (10:21)
[2017-01-04] MEDS: CELEBREX PO SCH (10:21)
[2017-01-04] MEDS: MAG-OX PO SCH ×2 (10:21→21:44)
[2017-01-04] MEDS: LASIX PO SCH ×2 (10:21→21:44)
--- NOTE | 2017-01-04 19:00 | PROGRESS NOTE ---
DATE: 01/04/2017 SUBJECTIVE: Today Ms. King is referred to be doing fine. She did not actually have any complaints; however, according to the nurses she had a lot of bleeding and hematuria yesterday and this morning as well. OBJECTIVE: Vital signs: Blood pressure is 123/46, pulse of 70, respirations 16 , temperature is 98.9 degrees. General Examination: Ms. King is an 86-year-old female. She is in bed and does not seems to be in any distress. HEENT: Mucosa is pink and moist. Anicteric. Acyanotic. Neck: Supple. No jugular venous distention. Chest: Good air entry bilaterally. Few bibasilar crepitations. Cardiovascular: Irregularly rate, irregular heart rate. There is a pronounced P2. No murmurs. Abdomen: Soft, distended, especially to the lower abdomen, but no bowel sounds were present. Extremities: 1+ pedal edema. The right knee swelling has completely resolved. There is a minimum swelling on the left arm where she had the IV axis. LABORATORY DATA: WBC 7.53, hemoglobin 10.2, platelet count of 201,000. Chemistry is reviewed. Sodium is 128. Potassium is 3.7, chloride is 7. TSH is now down to 7.12. ASSESSMENT: 1. Fluid overload on presentation, likely due to congestive heart failure, more predominantly a right failure. 2. Severe pulmonary hypertension. Etiology is unclear. I think is related to heart disease (pulmonary hypertension type II). 3. Diastolic heart failure, stable. 4. Atrial fibrillation, currently rate controlled. 5. Subclinical hypothyroidism. 6. Severe hyponatremia on presentation, resolved. 7. Mild cognitive decline, possibly underlying as Alzheimer's. 8. Folate deficiency. We will continue to replace. 9. Right knee chondrocalcinosis and osteoarthritis. We will continue with Celebrex and PT. 10. Hematuria. I am not sure if this was related to the Finley catheter that patient had; however, she is currently on an Eliquis for the atrial fibrillation. Hemoglobin and hematocrit has relatively remained stable. She has not need any transfusion , so I do not think it is any remarkable bleed to drop her counts; however, we will do a CT scan of the abdomen and pelvis to make sure there is no underlying genitourinary pathology that needs to be addressed urgently. In general, I think the patient has a bed at [facility]. If her CT scan is normal, we should be able to discharge her tomorrow. MTDMassiel
--- NOTE | 2017-01-04 20:15 | Diag Imaging Result Document ---
PROCEDURE NAME: CT ABD/PELVIS W/ IV CONT ONLY - 01/04/2017 CT ABDOMEN AND PELVIS WITH IV CONTRAST: COMPARISON: CT bony pelvis dated 10/01/2016. FINDINGS: There are small pleural effusions at the lung bases with bibasilar atelectasis. There is ground-glass consolidation in the left lower lobe indicating edema and/or infection. There is mild scarring versus atelectasis in the lingula. There is cardiomegaly. There is excessive motion or artifact on a few of the abdominal and pelvic slices. There is nonspecific mild heterogeneity involving the right hepatic lobe inferiorly. This may represent mild patchy fatty infiltration, but it is nonspecific. No well-defined hepatic mass can be identified. There is a tiny simple-appearing cyst at the lower pole of the right kidney. No well- defined renal mass is identified. However, there is mildly heterogeneous enhancement at the upper pole of the left kidney. This is nonspecific. It could represent focal renal scarring. Correlate clinically to exclude focal pyelonephritis. There is no hydronephrosis identified involving either kidney. There is a droplet of gas in the urinary bladder that may be due to recent catheterization. The bladder wall does not appear to be thickened. There is diffuse soft tissue anasarca. This includes diffuse mesenteric edema. There is a fair amount of stool in the colon suggesting constipation. There is nothing that would indicate bowel obstruction. There is no discrete free abdominal gas. No focal inflammatory changes are appreciated. The remainder of the solid viscera of the abdomen and pelvis and the remainder of the GI tract is essentially unremarkable. There is aortic atherosclerotic calcification. There has been interval placement of a metallic medullary jos involving the left femur. IMPRESSION: 1. Bilateral pleural effusions and bibasilar atelectasis. 2. Vague ground-glass opacity in the visualized portion of the left lower lobe suggesting edema most likely. Correlate clinically to exclude pneumonitis. 3. Diffuse anasarca. 4. Mild irregular enhancement at the cortex of the left kidney superiorly. This may represent renal scarring or perhaps focal pyelonephritis. Please correlate clinically. No well-defined renal mass can be identified and there is no evidence of hydronephrosis. 5. Constipation. 6. Other incidental/nonacute findings detailed above. [facility]
[2017-01-05] MEDS: DUONEB (A & A) INH SCH ×3 (03:23→11:23)
[2017-01-05 07:58] LABS: AGAP 8; BUN 12 mg/dL (8-22); CALCIUM 8.3 mg/dL (8.8-10.2); CHLORIDE 88 mmol/L (98-107); COSMO 259; SODIUM 129 mmol/L (136-145); TCO2 33 mmol/L (25-35)
[2017-01-05] MEDS: ASPIRIN PO SCH (08:51)
[2017-01-05] MEDS: LANOXIN PO SCH (08:51)
[2017-01-05] MEDS: CARDIZEM CD PO SCH (08:51)
[2017-01-05] MEDS: MAG-OX PO SCH (08:51)
[2017-01-05] MEDS: LASIX PO SCH (08:51)
[2017-01-05] MEDS: CELEBREX PO SCH (08:51)
[2017-01-05] MEDS: ELIQUIS PO SCH (08:51)
[2017-01-05] MEDS: PRILOSEC PO SCH (10:39)
[2017-01-05] MEDS ORDERED: PERICOLACE PO SCH (10:45)
[2017-01-05] MEDS ORDERED: FLEET MINERAL OIL ENEMA PR ONE (10:45)
--- NOTE | 2017-01-05 13:41 | DISCHARGE SUMMARY ---
ADMISSION DATE: 12/29/2016 DISCHARGE DATE: 01/05/2017 CONSULTATIONS: Dr. Ky Gary with Cardiology. PERTINENT PROCEDURES: 1. Head and neck ultrasound showed nonspecific round hypoechoic nodule at the inferior aspect of the left thyroid lobe that may represent an enlarged parathyroid gland. Consider correlation with serum calcium studies. 2. V/Q scan showed low probability for pulmonary emboli. 3. Abdomen and pelvis CT showed: 1) Bilateral pleural effusions and bibasilar atelectasis. 2) Ground-glass opacity in the visualized portion of the left lower lobe suggesting edema. 3) Diffuse anasarca. 4) Mild irregularity and enhancement of the cortex of the left kidney superiorly. May represent renal scarring or perhaps focal poly nephritis. No well-defined renal mass. No evidence of hydronephrosis. 5) Constipation. 4. Knee x-ray showed apparent faint chondrocalcinosis, mild osteoarthritic changes, an apparent joint effusion. No fracture or dislocation. Atherosclerotic calcifications noted. DISCHARGE DIAGNOSES: 1. Fluid volume overload secondary to congestive heart failure, more predominantly right failure. 2. Severe pulmonary hypertension, etiology unclear, secondary to her heart disease, pulmonary hypertension type 2. 3. Diastolic heart failure. Stable. 4. Atrial fibrillation, rate controlled. 5. Subclinical hypothyroidism. 6. Severe hyponatremia on presentation, now resolved. 7. Mild cognitive decline, possibly underlying Alzheimer's. 8. Folate deficiency. 9. Right knee chondrocalcinosis and osteoarthritis. Continue on Celebrex as well as physical therapy. 10. Hematuria. [place] to be related to Finley catheter. However, patient is on Eliquis for atrial fibrillation. Her hemoglobin and hematocrit have remained stable. CT scan of her abdomen and pelvis was performed to rule out any pathology. HOSPITAL COURSE: Briefly, Ms King is an 86-year-old female who has a past medical history of chronic atrial fibrillation on blood thinners, medical noncompliance , untreated hypertension and severe pulmonary artery hypertension. She was recently seen in September by us after she had an accidental fall and a fracture to her hip. At that time, she was diagnosed with atrial fibrillation. She had a successful hip fracture repair and was seen by Cardiology for her atrial fibrillation. She had an echocardiogram that revealed severe tricuspid regurgitation and systolic pulmonary pressure of 113 mmHg of mercury given her diagnosis of severe pulmonary artery hypertension. When she was discharged in September, she was discharged on Eliquis, Colace, Toprol, vitamin D, but according to the patient she thinks that she does not have any medical problems and that she did not need to take any of the medications. She did go to see Dr. Asif in her office because of progressive weakness and unable to walk around. She had reported shortness of breath, bilateral upper extremity edema. Dr. Asif felt that the patient needed to come to the ED for evaluation. On arrival to the ED, labs and diagnostics were done that were consistent with hypovolemic hyponatremia, mild anemia, elevated proBNP. Chest x-ray revealed severe cardiomegaly, pulmonary vascular congestion, bilateral pleural effusions consistent with congestive heart failure. The patient was quite agitated at her diagnosis. Again, she is stating she has no medical problems. The patient agreed to be admitted for further treatment and evaluation. Cardiology was consulted. She was started on IV diuretics as well as monitored strict I Os and daily weights. Started on low-dose digoxin. Monitor her on telemetry as well as hemodynamics. Chronic atrial fibrillation for which the patient is rate controlled. She was restarted back on her Eliquis per Cardiology's recommendations with p.r.n. hypertensive medication until Cardiology could assess the patient. She did undergo a V/Q scan that showed low probability for pulmonary embolism. Cardiology agreed to keep diuresing with IV Lasix. He did treat her hyponatremia with Samsca 15 mg daily and added a long-acting diltiazem to improve her rate control with her severe pulmonary hypertension and to continue with Eliquis given the significant [id number] score. The patient and her daughter did have concerns about knee swelling as well as some left arm swelling. Her IV access did infiltrate. They did do a knee x-ray. The knee x-ray showed apparent faint chondrocalcinosis, mild osteoarthritic changes and apparent joint effusion, but no evidence of fracture or dislocation and atherosclerotic calcifications. Patient was started on Celebrex as well as physical therapy. She did have some hematuria for which they did an abdomen and pelvis CT to rule out any complications. Clinically the patient continued to improve. environmental services floor tech was consulted for rehab placement[facility]. VITAL SIGNS AT TIME OF DISCHARGE: Temperature is 98.7 degrees, heart rate 65, respirations 20, blood pressure is 137/66, O2 is 98% on room air. DISCHARGE DIET: Healthy heart. DISCHARGE MEDICATIONS: 1. Aspirin 81 mg p.o. daily. 2. Cardizem CD 120 mg p.o. daily. 3. Eliquis 2.5 mg p.o. b.i.d. 4. Digoxin 125 mcg p.o. daily. 5. Lasix 20 mg p.o. b.i.d. 6. Mag-Ox 400 mg p.o. b.i.d. 7. Magda-Colace 1tab p.o. b.i.d. 8. Prilosec 40 mg p.o. b.i.d. 9. Synthroid 50 mcg p.o. daily. FOLLOWUP: The patient is being discharged to [facility] in [place]. She will need to follow up with her primary care physician, Dr. Asif, after rehab as well as Cardiology within the month. The patient can return to the ED for any worsening of symptoms. Dictated by ROHAN Raphael for Jose Carlos Tapia MD MTDD
[2017-01-05 14:23] VITALS: BP 133/95
[2017-01-06] MEDS ORDERED: SYNTHROID PO SCH (07:00)
== END 2017-01-05 16:00 | DRG 292 ==
LOC: ED 15:48 → EDIPHOLD 18:22 → 3N 12-30 07:04
PROVIDERS: ATTEND Internal Medicine
DX: I11.0 Hypertensive heart disease with heart failure (principal); E87.1 Hypo-osmolality and hyponatremia; I27.2 Other secondary pulmonary hypertension; G30.9 Alzheimer's disease, unspecified; F02.80 Dementia in other diseases classified elsewhere, unspecified severity, without behavioral disturbance, psychotic disturbance, mood disturbance, and anxiety; I48.2 Chronic atrial fibrillation; Z66 Do not resuscitate; I50.43 Acute on chronic combined systolic (congestive) and diastolic (congestive) heart failure; I27.81 Cor pulmonale (chronic); M11.261 Other chondrocalcinosis, right knee; I07.1 Rheumatic tricuspid insufficiency; E03.9 Hypothyroidism, unspecified; M17.9 Osteoarthritis of knee, unspecified; D64.9 Anemia, unspecified; R31.9 Hematuria, unspecified; Z82.49 Family history of ischemic heart disease and other diseases of the circulatory system; Z80.8 Family history of malignant neoplasm of other organs or systems; Z79.82 Long term (current) use of aspirin; Z91.128 Patient's intentional underdosing of medication regimen for other reason; E53.8 Deficiency of other specified B group vitamins
CPT/HCPCS: 36415; 51702; 71010; 73560; 74177; 76536; 78582; 80048; 80053; 80061; 81001; 82550; 82570; 82728; 82746; 83036; 83540; 83550; 83735; 83880; 83935; 84100; 84300; 84436; 84439; 84443; 84484; 84550; 85025; 85027; 85610; 85651; 85730; 86038; 86141; 86376; 94640; 94761; 96374; 96375; A9539; A9540; C9113; J1940; J3475; Q9967; 97110-GP; 97530-GP; S0164

== ENCOUNTER 2017-07-08 15:55 | Inpatient (IN) ==
[2017-07-08] MEDS ORDERED: MORPHINE IV ONE (16:39)
[2017-07-08] MEDS ORDERED: ZOFRAN IV ONE (16:39)
[2017-07-08 17:21] LABS: AGAP 10; ALBUMIN 2.9 g/dL (3.5-5.0); ALKALINE PHOSPHATASE 111 U/L (32-104); BUN 10 mg/dL (8-22); CALCIUM 7.8 mg/dL (8.8-10.2); CHLORIDE 89 mmol/L (98-107); COSMO 253; GOT 26 U/L (10-30); GPT 15 U/L (10-36); POTASSIUM 3.7 mmol/L (3.5-5.1); SODIUM 126 mmol/L (136-145); TCO2 27 mmol/L (25-35); TOTAL PROTEIN 6.9 g/dL (6.3-8.3)
[2017-07-08 17:28] LABS: BASO% 0.5 % (0.0-0.8); EOS# 0.04 X1000 (0.0-0.7); EOS% 0.7 % (0.0-10.0); HEMATOCRIT 18.8 % (37.0-47.0); IMM GRAN# 0.01 X1000 (0.0-0.04); IMM GRAN% 0.2 % (0.0-0.5); LYMPH# 0.78 X1000 (1.2-3.4); MCH 19.2 PG (27-31); MCHC 29.8 g/dL (33-37); MCV 64.4 FL (81-99); MONO# 0.71 X1000 (0.11-0.59); MONO% 12.7 % (1.7-9.3); MPV 9.5 FL (7.4-10.4); NEUT% 71.9 % (42.2-75.2); PLT 216 X1000 (130-400); RBC 2.92 XMIL (4.2-5.4)
[2017-07-08 17:29] LABS: MANUAL DIFF NEEDED? NO
[2017-07-08 17:30] LABS: HEMOGLOBIN 5.6 g/dL (12.0-16.0)
--- NOTE | 2017-07-08 18:01 | PROVIDER DOCUMENTATION ---
This chart was entered by Alexandra Escobedo Scribe, acting as scribe for Tank Augustin MD. HPI-Musculoskeletal Pain/Inj - GENERAL Source: patient, family Unable to obtain history due to:: other (Pt unable to give hx due to dementia; daughter can only provide limited hx because she was not present for incidents.) - HX OF PRESENT ILLNESS-MUSKULOSKELTAL Severity in ED: moderate Onset/Duration: abrupt, 1 hour ago (RLE), 24 hours ago (LLE), other (Fall 4 days ago) Timing: still present Modifying Factors: improves with: nothing Any recent injury?: Yes (Fall) Locality of Occurance: Other ([facility]) Similar Symptoms Previously?: No - FALL INJURY Location of Pain/Injury: reports: upper extremity (L elbow and wrist), lower extremity (bilateral pain). denies: pelvis Pain Radiation: reports: no radiation Reason for Fall: reports: unknown Loss of Consciousness: no loss of consciousness Injury Associated Symptoms: reports: arm pain, trouble walking - LOWER EXTREMITY PAIN/INJURY Lower Extremities Pain: leg: left Context / Method of Injury: reports: fell - UPPER EXTREMITY PAIN/INJURY Extremities Pain Location: elbow: left (abrasion, dislocation), wrist: left (fx) , hand: left (swelling, ecchymosis) Context / Method of Injury: reports: fell <Tank Augustin - Last Filed: 07/08/17 18:01> <Arnaldo Mohan I - Last Filed: 07/08/17 20:49> - GENERAL Chief Complaint: Fall Stated Complaint: fall Time Seen by Provider: 07/08/17 16:11 - HX OF PRESENT ILLNESS-MUSKULOSKELTAL Nature of Presenting Problem: 87 yo F is brought to ED with cc of R LE pain x 1 hr and LLE pain x 1 day. Pt's daughter reports she had a fall 4 days ago onto her R side. She sustained an abrasion to her L elbow at that time. Daughter reports pt was able to ambulate typically for 2 days after and had no notable changes. Pt did reportedly hit her head. Yesterday daughter was called by [facility] with report that pt was experiencing significant LLE pain. Pt was x-rayed yesterday evening, revealing a L wrist fx, a L elbow dislocation, and negative LLE study. Pt was no longer able to walk. Upon arrival to ED, pt complained of RLE pain but denied LLE pain. She used her L hand. (Alexandra Escobedo) 87 yo F is brought to ED with cc of R LE pain x 1 hr and LLE pain x 1 day. Pt's daughter reports she had a fall 4 days ago onto her R side. She sustained an abrasion to her L elbow at that time. Daughter reports pt was able to ambulate typically for 2 days after and had no notable changes. Pt did reportedly hit her head. Yesterday daughter was called by [facility] with report that pt was experiencing significant LLE pain. Pt was x-rayed yesterday evening, revealing a L wrist fx, a L elbow dislocation, and negative LLE study. Pt was no longer able to walk. Upon arrival to ED, pt complained of RLE pain but denied LLE pain. She used her L hand. (Tank Augustin) Review of Systems - Adult - REVIEW OF SYSTEMS - ADULT ROS:: limited per condition (Assistance by daughter, to the degree she was able) Constitutional: reports: no symptoms reported. denies: chills, fever Eyes: reports: no symptoms reported. denies: discharge, redness Ears, Nose, Mouth & Throat: reports: no symptoms reported. denies: ear discharge, sinus problem Cardiovascular: reports: no symptoms reported. denies: chest pain, edema Respiratory: reports: no symptoms reported. denies: cough, wheezing Gastrointestinal: reports: no symptoms reported. denies: diarrhea, vomiting Genitourinary: reports: no symptoms reported. denies: discharge, frequency Musculoskeletal: reports: bone pain (bilateral LE; L elbow and wrist), joint pain (L elbow) Integumentary: reports: no symptoms reported, skin sores/ulcer (abrasion, L elbow), other (Pt has thick, tough skin with mole-like growths on her bilateral LE.) Neurological: reports: no symptoms reported. denies: headache/migraines, tremors Psychiatric: reports: no symptoms reported Endocrine: reports: no symptoms reported. denies: excessive sweating, increased hunger Hematologic/Lymphatic: reports: no symptoms reported. denies: blood clots, swollen lymph nodes Allergic/Immunologic: reports: no symptoms reported. denies: allergic reactions , food allergy All Other Systems: Reviewed and Negative <Tank Augustin - Last Filed: 07/08/17 18:01> - REVIEW OF SYSTEMS - ADULT Constitutional: reports: no symptoms reported <Arnaldo Mohan I - Last Filed: 07/08/17 20:49> Past History - Adult - PAST MEDICAL HISTORY-ADULT Review of Records: reports: Old Records Reviewed, Nursing Assessment Review, Medications Reviewed Major Childhood Illnesses: reports: denies history Cardiovascular: reports: A-Fib - PRIOR SURGERIES/PROCEDURES Surgical/Procedure History: reports: orthopedic (extremity) (left hip) - IMMUNIZATION STATUS Childhood Immunizations: See Nurse Assessment Flu Vaccine: See Nurse Assessment - FAMILY HISTORY Family History: reviewed, not pertinent <Tank Augustin - Last Filed: 07/08/17 18:01> - PAST MEDICAL HISTORY-ADULT Review of Records: reports: Old Records Reviewed, Nursing Assessment Review, Medications Reviewed <Arnaldo Mohan I - Last Filed: 07/08/17 20:49> Physical Exam-Injury Related - Physical Exam-Injury Related Initial Vital Signs Reviewed: Yes General Appearance: alert, mild distress, slow to respond Eyes: PERRL/EOMI, pink conjunctivae Head, Ears, Nose, Mouth & Throat: normocephalic/atraumatic, moist mucous membranes Neck: non-tender, full range of motion, supple Respiratory: chest non-tender, lungs clear, normal breath sounds Cardiovascular: normal peripheral pulses, regular rate, rhythm Abdominal Exam: normal bowel sounds, non tender, soft Lymphatic: no adenopathy Back Exam: normal inspection Extremity: non-tender, no pedal edema, no calf tenderness, pelvis stable Integumentary: other (bilateral LE thickened, dark, and presenting with mole- like growths) Neurologic: other (Pt neuro exam not different from baseline; gait unable to be tested) Psych/Mental Status: other (Pt appears to be demented. Daughter does not report deviation from pt's pysch or mental baseline.) <Tank Augustin - Last Filed: 07/08/17 18:01> - Physical Exam-Injury Related General Appearance: appears well <Arnaldo Mohan I - Last Filed: 07/08/17 20:49> Progress - PLAN OF CARE/RESULTS Result Diagrams: 07/08/17 16:57 07/08/17 16:57 - CONSULTS/PCP/HOSPITALIST Notification #1 *Consult/PCP/Hospitalist*: Parris Time Discussed: 20:47 Reason/Comments: admit. case discussed family will accept rehab for patient Consult Disposition: Admit <Arnaldo Mohan I - Last Filed: 07/08/17 20:49> - PLAN OF CARE/RESULTS Progress/Plan/Lab Results: Vital Signs - 8 hr 07/08/17 15:59 07/08/17 16:17 07/08/17 16:30 Temperature 98 F Pulse Rate 60 59 L Respiratory Rate 18 18 Blood Pressure 106/65 135/60 O2 Sat by Pulse Oximetry 95 91 L 07/08/17 16:45 07/08/17 17:15 07/08/17 17:30 Temperature Pulse Rate 60 55 L 59 L Respiratory Rate 21 16 16 Blood Pressure 132/58 108/51 118/52 O2 Sat by Pulse Oximetry 91 L 96 90 L 07/08/17 17:45 07/08/17 18:00 07/08/17 19:40 Temperature Pulse Rate 67 55 L 54 L Respiratory Rate 15 26 H 14 Blood Pressure 118/48 120/46 118/50 O2 Sat by Pulse Oximetry 94 L 88 L 100 Laboratory Results - last 24 hr 07/08/17 07/08/17 07/08/17 16:57 16:57 16:57 WBC 5.57 RBC 2.92 L Hgb 5.6 L* Hct 18.8 L MCV 64.4 L MCH 19.2 L MCHC 29.8 L RDW Std Deviation 19.5 H Plt Count 216 MPV 9.5 Immature Gran % (Auto) 0.2 Neut % (Auto) 71.9 Lymph % (Auto) 14.0 L [place] % (Auto) 12.7 H Eos % (Auto) 0.7 Baso % (Auto) 0.5 Immature Gran # (Auto) 0.01 Neut # (Auto) 4.00 Lymph # (Auto) 0.78 L [place] # (Auto) 0.71 H Eos # (Auto) 0.04 Baso # (Auto) 0.03 Segmented Neutrophils Not Reportable Sodium 126 L Potassium 3.7 Chloride 89 L Carbon Dioxide 27 Anion Gap 10 BUN 10 Creatinine 0.6 Estimated GFR/1.73 m2 > 60 BUN/Creatinine Ratio 17 Glucose 102 Calculated Osmolality 253 Calcium 7.8 L Total Bilirubin 0.90 AST 26 ALT 15 Alkaline Phosphatase 111 H Total Protein 6.9 Albumin 2.9 L Globulin 4.0 Albumin/Globulin Ratio 1.0 Blood Type O POSITIVE Antibody Screen NEGATIVE Crossmatch See Detail Orders Category Date Time Status Finley Cath Insertion ORDERED Care 07/08/17 16:39 Active IV Insertion ORDERED Care 07/08/17 16:39 Completed Transfuse .Give-Transfuse Care 07/08/17 20:43 Active Wrist Splint DIRECTED Care 07/08/17 16:[address] HEAD/C-SPINE W/O CONTRAST [CT] Stat Exams 07/08/17 16:[address] PELVIS W/O CONTRAST [CT] Stat Exams 07/08/17 16:39 Completed FEMUR MIN 2 VIEWS RIGHT [RAD] Stat Exams 07/08/17 16:39 Taken CBC WITH ELECTRONIC DIFF [HEME] Stat Lab 07/08/17 16:57 Completed COMPREHENSIVE METABOLIC PANEL [CHEM] Stat Lab 07/08/17 16:57 Completed LRPC (RED CELLS) [BBK] Stat Lab 07/08/17 20:45 Ordered TYPE & SCREEN [BBK] Stat Lab 07/08/17 16:[address] W/POSS RFLX CULT [URINALYSIS] Stat Lab 07/08/17 16:39 Uncollected Morphine Med 07/08/17 16:39 Discontinued 2 mg IV NOW ONE Ondansetron [Zofran] Med 07/08/17 16:39 Discontinued 4 mg IV NOW ONE Transfer/Admit Order [TRANSFER] Routine Transfer 07/08/17 20:40 Ordered Departure <Tank Augustin - Last Filed: 07/08/17 18:01> - Departure Date of Disposition Decision: 07/08/17 Time of Disposition Decision: 20:48 Certified Medical Emergency: Emergent - Critical Care Note This patient required my direct & personal management of CC.: No <Arnaldo Mohan I - Last Filed: 07/08/17 20:49> - Departure DIAGNOSIS: Pelvic ring fracture, Fall, Anemia Disposition: ADMITTED INPATIENT 09 Condition: Critical Referrals and Follow-Ups: Pretty Asif MD [Primary Care Provider] - Attestation - Physician/ JUAN MIGUEL Attestation The physician spent face to face time with patient:: Yes Advanced Practice Provider documentation review:: Supervising physician onsite and consulted in the evaluation and care of this patient. The physician did have a face to face encounter with the patient. <Arnaldo Mohan I - Last Filed: 07/08/17 20:49> This chart was documented by the indicated scribe, (Alexandra Escobedo Scribe) and accurately reflects the services I performed and decisions made by me, Tank Augustin MD, as attested by the provider's signature.
--- NOTE | 2017-07-08 19:07 | Diag Imaging Result Doc PS360 ---
EXAM: CT PELVIS W/O CONTRAST HISTORY: fall TECHNIQUE: CT pelvis without contrast. Dose reduction protocol. COMPARISON: 10/01/2016 FINDINGS: The patient has undergone orthopedic surgery to the left hip since the prior exam. There is a left femoral jos as well as an orthopedic pin through the femoral neck on the current study. There is a partially healed fracture with prominent callus formation. Neither femur is dislocated. No fracture to the right hip. There is a nondisplaced fracture to the inferior pubic ramus on the left. No widening of the pubic symphysis. 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 There is also body wall edema. The urinary bladder is overly distended. IMPRESSION: 1.Acute nondisplaced fracture to the inferior pubic ramus on the left. This is often associated with additional fractures and I suspect there is an occult fracture to the superior pubic ramus. 2.Prominent callus formation with partial healing of the prior comminuted fracture of the left hip. 3.Apparent large varices in the abdomen and pelvis in addition to enlarged pelvic and inguinal lymph nodes and prominent edema in the body wall. 4.The urinary bladder is overly distended. Electronically signed by Rhys Wheeler 07/08/2017 7:05 PM
--- NOTE | 2017-07-08 19:22 | Diag Imaging Result Doc PS360 ---
EXAM : CT HEAD/C-SPINE W/O CONTRAST HISTORY: fall on eloquis TECHNIQUE: CT brain without contrast. CT cervical spine without contrast. Dose reduction protocol. COMPARISON: None. FINDINGS: Head: No parenchymal hemorrhage. No epidural or subdural hematoma. No subarachnoid hemorrhage. No mass identified on this noncontrasted exam. No hydrocephalus. There is atrophy with chronic ischemic changes. No sinus opacification. Cervical spine: There is good alignment to the cervical spine. No precervical soft tissue swelling. No subluxation. No fracture. There is scoliosis and degenerative spine changes. IMPRESSION: Head: No hemorrhage. No injury. Cervical spine: No acute fracture. Electronically signed by Rhys Wheeler 07/08/2017 7:20 PM
[2017-07-08] MEDS ORDERED: TYLENOL PO PRN (21:39)
[2017-07-08] MEDS ORDERED: NS 250 ML ONE (22:15)
[2017-07-08 22:27] LABS: BLOOD TYPE ARTERIAL; DRAW SITE R BRACHIAL; METHB 0.5 % (0.0-1.5); O2(CT) 7.4 mL/dL (15.0-23.0); PCO2(98.6) 40 mmHg (35-45); PO2(98.6) 129 mmHg (60-100); SAMPLE BLOOD; SAO2 100.6 % (95.0-100.0); THB 5.2 g/dL (11.5-17.4); pH(98.6) 7.52 (7.35-7.45)
[2017-07-08 22:30] LABS: MODALITY CANNULA
[2017-07-08 22:31] LABS: ALLEN TEST NO
[2017-07-09] MEDS: MORPHINE IV PRN (00:32)
[2017-07-09] MEDS ORDERED: NS 250 ML ONE (04:16)
[2017-07-09 08:23] LABS: HEMATOCRIT 21.8 % (37.0-47.0); HEMOGLOBIN 6.6 g/dL (12.0-16.0)
[2017-07-09 08:46] LABS: IRON SATURATION 14 %; TIBC 311 ug/dL; TOTAL IRON 42 ug/dL (49-151); UNBOUND IRON 269 ug/dL (112-346)
[2017-07-09] MEDS ORDERED: BENADRYL LIQUID PO PRN (08:52)
[2017-07-09] MEDS ORDERED: ATIVAN PO PRN (08:52)
[2017-07-09] MEDS ORDERED: TYLENOL PO PRN (08:52)
[2017-07-09] MEDS ORDERED: ELIQUIS PO SCH (09:00)
[2017-07-09] MEDS ORDERED: LANOXIN PO SCH (09:00)
[2017-07-09] MEDS ORDERED: LASIX PO SCH (09:00)
[2017-07-09] MEDS ORDERED: CARDIZEM CD PO SCH (09:00)
[2017-07-09] MEDS ORDERED: ZOFRAN IV PRN (09:01)
[2017-07-09 09:16] LABS: AGAP 9; BUN 12 mg/dL (8-22); CALCIUM 7.5 mg/dL (8.8-10.2); CHLORIDE 94 mmol/L (98-107); COSMO 261; SODIUM 131 mmol/L (136-145); TCO2 29 mmol/L (25-35)
[2017-07-09] MEDS: PERICOLACE PO SCH ×2 (09:26→20:52)
[2017-07-09] MEDS: KLOR-CON PO SCH (09:26)
[2017-07-09] MEDS: LANOXIN PO SCH (09:27)
[2017-07-09] MEDS: MAG-OX PO SCH ×2 (09:27→20:53)
[2017-07-09] MEDS: CARDIZEM CD PO SCH (09:28)
[2017-07-09] MEDS ORDERED: FERRLECIT 125 MG in NS 100 ML IV ONE (10:00)
--- NOTE | 2017-07-09 10:04 | HISTORY AND PHYSICAL ---
PRIMARY CARE PHYSICIAN: Dr. Asif. CHIEF COMPLAINT: Right lower extremity pain and left lower extremity pain. HISTORY OF PRESENTING ILLNESS: This is an 87-year-old female, who presents to [facility] ER from a local half-way after she began complaining of right lower extremity pain for 1 hour prior to arrival and left lower extremity pain for 1 day. Apparently according to the daughter, she had a fall at the half-way approximately 4 days ago onto her right side, had sustained an abrasion to her left elbow at that time, had been unable to ambulate for the past couple of days. It was noted that she reportedly had hit her head also. The daughter reports that she was called by the half-way with a report that the patient was experiencing significant left lower extremity pain. The patient was x-rayed yesterday evening revealing a left wrist fracture and a left elbow dislocation, but a negative left lower extremity study. The patient was no longer able to walk, so she was brought to the emergency room for further evaluation and treatment. We did a CT of the pelvis that revealed an acute nondisplaced fracture to the inferior pubic ramus on the left. There is suspected occult fracture to the superior pubic ramus. We did a CT of the head and cervical spine that showed no hemorrhage and no injury to the head and the cervical spine with no acute fracture. LABORATORY DATA: Revealed a hemoglobin and hematocrit of 5.6 and 18.8. She also had a sodium of 126, so she was admitted to the medical unit for further evaluation and treatment. PAST MEDICAL HISTORY: Chronic atrial fibrillation, hypertension, severe pulmonary artery hypertension, severe tricuspid regurgitation, some medication noncompliance and dementia. PAST SURGICAL HISTORY: Tonsillectomy, cataract surgery, bilateral varicose vein strippings and a left hip repair. FAMILY HISTORY: Hypertension and cardiomegaly. Her daughter passed of brain cancer approximately 2 years ago. SOCIAL HISTORY: She currently resides in a local half-way. Denies any tobacco, alcohol or illicit drug use. ALLERGIES: She has no known drug allergies. HOME MEDICATIONS: She takes: 1. Tylenol 650 mg p.o. q. 6 hours p.r.n. 2. Eliquis 2.5 mg p.o. b.i.d.; we will hold this at this time. 3. Aspirin 81 mg p.o. daily will be held at this time. 4. Calamine lotion applied to affected area p.r.n. 5. Digoxin 125 mcg p.o. daily. 6. Cardizem CD 120 mg p.o. daily. 7. Diphenhydramine 12.5 mg p.o. q. 6-8 hours p.r.n. for itching. 8. Lasix 40 mg p.o. b.i.d.; we will hold the Lasix for right now. 9. Synthroid 50 mcg p.o. daily. 10. Ativan 0.5 mg p.o. q. 6-8 hours p.r.n. 11. Mag Oxide 400 mg p.o. b.i.d. 12. Prilosec 40 mg p.o. b.i.d. 13. Klor-Con 20 mEq p.o. daily. 14. Magda-Colace 1 p.o. b.i.d. LABORATORY DATA: A white blood cell count of 5.57, hemoglobin 5.6, hematocrit 18.8, platelets 216. She did receive 2 units of packed red blood cells overnight, and this morning her hemoglobin and hematocrit is 6.6 and 21.8. ABG showed a pH of 7.52, pCO2 of 40, PO2 129, bicarbonate 32 and this was on 4 L via nasal cannula. Sodium was 126, potassium 3.7, chloride 89, CO2 27, BUN of 10, creatinine 0.6, glucose 102. Her iron was 43, TIBC 311. IMAGING STUDIES: CT of the pelvis shows an acute nondisplaced fracture to the inferior pubic ramus on the left. This is often associated with additional fractures and suspect that there is an occult fracture to the superior pubic ramus. Prominent callus formations with partial healing of the prior comminuted fracture of the left hip. Apparent large varices in the abdomen and pelvis, in addition to large pelvic and inguinal lymph nodes and a prominent edema in the body wall. CT of the head showed no hemorrhage, no injury. CT of the cervical spine showed no acute fracture. We do not have at this time the x-rays that the half-way took, but the patient is noted to have left wrist and a left elbow dislocation. She is noted at this time to have a brace to her left wrist. REVIEW OF SYSTEMS: Unable to obtain due to patient's dementia. PHYSICAL EXAMINATION: VITAL SIGNS: On arrival, she had a temperature of 98 degrees, pulse 60, respirations 18, blood pressure 106/65. She was satting 91% on 3 L. Did drop down to the lowest point of 82 on 4 L. Currently, she is at 96% on 3 L. GENERAL: This is an 87-year-old female, who is lying in the bed, answers some questions appropriately, but not all due to her dementia, so obtained information from the ER record and previous admissions. HEENT: Appears normocephalic and atraumatic. Pupils are equal, round, reactive to light. Extraocular movements are intact. The oropharynx and nares are clear. NECK: Supple. LUNGS: Clear to auscultation bilaterally with equal lung expansion and chest wall movement. HEART: With regular rate and rhythm. No murmurs, rubs or gallops. ABDOMEN: Soft, nontender, nondistended. Bowel sounds are present x4 quadrants. EXTREMITIES: No clubbing, cyanosis, or edema. NEUROLOGICAL: The cranial nerves 2-12 appear grossly intact, but again unable to assess all due to patient's dementia. ASSESSMENT: 1. Pelvic fracture. 2. Iron deficiency anemia. 3. Hyponatremia. 4. Dementia. 5. Chronic atrial fibrillation. PLAN: She was admitted to the medical unit. She did receive 2 units of packed red blood cells last night and we rechecked her hemoglobin and hematocrit this morning. We are going to go ahead and give her 1 more unit of blood, and then we will check another hemoglobin and hematocrit status post that unit to see if she needs any more. She is on strict bed rest. We have consulted orthopedics. We will give her a dose of Ferrlecit after she receives her blood at 125 mg x1 dose for her iron deficiency. Will continue her home medications as previously identified. She has morphine 0.5 mg IV q. 4 hours p.r.n., Zofran 4 mg IV q. 4 p.r.n. We will hold her Eliquis and aspirin at this time. We will also recheck a BMP this morning and recheck a CBC and a BMP in the a.m. Dictated by ROHAN Roman for Jose Carlos Tapia MD cc: ROHAN Roman MD Nidhi Jindal MD I have seen and examined this patient. I have provided face to face evaluation. I have reviewed her lab works and imagine studies. Patient presents with possibly symptomatic anemia with falls and broken pelvic bones. I agree with the above plan. CRISTIAN STAFFORD
[2017-07-09] MEDS ORDERED: SAMSCA PO ONE (11:19)
[2017-07-09 11:25] LABS: RETIC% 1.45 % (0.8-2.1); RETIC-HE 17.5 PG (28.2-36.6)
--- NOTE | 2017-07-09 12:07 | EKG Report ---
Test Performed on : 07/09/2017 11:46:03 AM Test Reason : Afib Blood Pressure : / mmHG Vent. Rate : 056 BPM Atrial Rate : 038 BPM P-R Int : 000 ms QRS Dur : 088 ms QT Int : 430 ms P-R-T Axes : 000 095 179 degrees QTc Int : 414 ms Atrial fibrillation. with slow ventricular response. with premature ventricular or aberrantly conduc vazquez complexes. Low voltage QRS Septal infarct , age undetermined Possible Lateral infarct , age undetermined Abnormal ECG When compared with ECG of 17-FEB-2017 23:27, Atrial fibrillation. has replaced Junctional rhythm. Septal infarct is now present Confirmed by Noel Marks MD ([id number]) on 07/25/2017 1:18:23 PM
[2017-07-09] MEDS: LASIX IV SCH ×2 (12:16→20:53)
[2017-07-09] MEDS ORDERED: NS 500 ML ONE (14:31)
--- NOTE | 2017-07-09 14:58 | Diag Imaging Result Doc PS360 ---
EXAM: CT THORAX/ABDOMEN/PELVIS HISTORY: severe anemia/wieght lose/r/o malignancy TECHNIQUE: CT scan of the chest, abdomen, and pelvis with contrast as per standard protocol. Dose reduction technique. COMPARISON: CT abdomen and pelvis performed 01/04/2017 FINDINGS: CT thorax: There are bilateral pleural effusions and bibasilar atelectasis increased from the prior study. There is marked cardiomegaly. There is reflux into the intrahepatic IVC and hepatic veins. There is coronary artery calcification. No lymphadenopathy is appreciated. No parenchymal nodules or masses are appreciated. CT abdomen/pelvis: There is marked irregular heterogeneous enhancement involving the liver which has markedly progressed compared with prior study. This appearance may be seen with chronic passive congestion the liver, hepatitis, cirrhosis, or even diffusely infiltrating neoplasm. There is free fluid in the abdomen and pelvis. There is gallbladder wall thickening versus pericholecystic fluid. The pancreas is unremarkable. There is diffuse anasarca and mesenteric edema. There is a Finley catheter within the bladder with an air-fluid level. There is fixation jos in left hip. There is mild constipation. There is no splenomegaly. There is no evidence for acute appendicitis or bowel obstruction.. There are numerous varices within the pelvis particularly the inguinal and ischio- rectal region. This is difficult to differentiate from possible lymphadenopathy. There are also retroperitoneal (perirenal) varices. The portal vein and splenic vein are patent. The IVC is poorly opacified. There is no free air. IMPRESSION: 1.Increased bilateral pleural effusions and bibasilar airspace disease when compared with prior study. 2.Marked cardiomegaly with reflux of contrast into the IVC and hepatic veins. 3.Marked heterogeneous liver attenuation which may be secondary to chronic passive congestion of the liver. This has progressed from the prior study. Other etiologies including hepatitis or neoplasm are not excluded. See report above. 4.Numerous pelvic varices and/or pelvic lymphadenopathy. 5.Perirenal varices. 6.Mild ascites, anasarca, and mesenteric edema. 7.Gallbladder wall thickening versus pericholecystic fluid. 8.Mild constipation. Electronically signed by Priscilla Dubois 07/09/2017 2:56 PM
[2017-07-09 19:44] LABS: HEMATOCRIT 24.7 % (37.0-47.0); HEMOGLOBIN 7.8 g/dL (12.0-16.0)
[2017-07-09] MEDS: PRILOSEC PO SCH (20:52)
[2017-07-10 06:41] LABS: BASO% 0.5 % (0.0-0.8); EOS# 0.07 X1000 (0.0-0.7); EOS% 1.3 % (0.0-10.0); HEMOGLOBIN 7.6 g/dL (12.0-16.0); IMM GRAN# 0.01 X1000 (0.0-0.04); IMM GRAN% 0.2 % (0.0-0.5); LYMPH# 0.49 X1000 (1.2-3.4); LYMPH% 8.9 % (20.5-51.1); MCH 21.2 PG (27-31); MCHC 30.4 g/dL (33-37); MCV 69.8 FL (81-99); MONO# 0.64 X1000 (0.11-0.59); MONO% 11.6 % (1.7-9.3); MPV 9.5 FL (7.4-10.4); NEUT% 77.5 % (42.2-75.2); PLT 183 X1000 (130-400); RBC 3.58 XMIL (4.2-5.4)
[2017-07-10 07:10] LABS: AGAP 9; BUN 10 mg/dL (8-22); CALCIUM 7.8 mg/dL (8.8-10.2); CHLORIDE 92 mmol/L (98-107); COSMO 257; POTASSIUM 3.9 mmol/L (3.5-5.1); SODIUM 129 mmol/L (136-145); TCO2 28 mmol/L (25-35)
[2017-07-10] MEDS: SYNTHROID PO SCH (07:26)
[2017-07-10] MEDS: PRILOSEC PO SCH ×2 (07:26→21:05)
[2017-07-10 09:02] LABS: MANUAL DIFF NEEDED? NO
[2017-07-10] MEDS: LASIX IV SCH ×2 (09:14→21:05)
[2017-07-10] MEDS: CARDIZEM CD PO SCH (09:14)
[2017-07-10] MEDS: LANOXIN PO SCH (09:14)
[2017-07-10] MEDS: PERICOLACE PO SCH ×2 (09:14→21:05)
[2017-07-10] MEDS: MAG-OX PO SCH ×2 (09:14→21:05)
[2017-07-10] MEDS: KLOR-CON PO SCH (09:14)
--- NOTE | 2017-07-10 14:46 | Diag Imaging Result Doc PS360 ---
EXAM: WRIST COMPLETE LEFT HISTORY: fall, ? wrist fx TECHNIQUE: Left wrist three views COMMENT: There is a comminuted fracture of the distal radial metaphysis which extends to the articular surface. There is calcification of the arteries. There is calcification in the triangular fibrocartilage. Degenerative changes are present particularly in the first metacarpocarpal carpal joints. IMPRESSION: Fracture distal radius. Electronically signed by Javid Farrell 07/10/2017 2:44 PM
--- NOTE | 2017-07-10 14:47 | Diag Imaging Result Doc PS360 ---
EXAM: ELBOW COMPLETE LEFT HISTORY: questionable fx, TECHNIQUE: Left elbow three views COMMENT: There is no evidence of acute fracture or dislocation. No other definite bony abnormalities are present. IMPRESSION: No acute bony abnormality. Electronically signed by Javid Farrell 07/10/2017 2:44 PM
--- NOTE | 2017-07-10 18:24 | CONSULTATION ---
DATE OF CONSULTATION: 07/10/2017 HISTORY: Patient is a 87-year-old female who presented emergency room 2 days ago complaining of bilateral hip pain approximately 1 hour prior to arrival. According to review the records the daughter reports that she had a fall [facility] approximately 4 days prior to admission sustaining abrasion left elbow and injury to her left wrist. X-rays apparently were obtained revealed according to the to the patient's family revealed a left wrist fracture. She underwent evaluation x-rays for left lower extremity was negative. Her x-rays of her left lower extremity were negative. The patient is currently unable to walk and was brought to emergency room for further evaluation. CT scan revealed a left rami fracture. She admitted in the hospital and orthopedic consultation requested. HOME MEDICATIONS: Tylenol 650 p.o. q.6 hours p.r.n. pain, Eliquis 2.5 mg p.o. b.i.d., aspirin 81 mg p.o. daily, calamine lotion as p.r.n. digoxin 125 mcg p.o. daily, Cardizem CD 120 mg p.o. daily, diphenhydramine 12.5 mg p.o. q.6-8 hours p.r.n. itching, Lasix 40 mg p.o. b.i.d., Synthroid 50 mcg p.o. daily, Ativan 0.5 mg p.o. q.6-8 hours p.r.n., magnesium oxide 400 mg p.o. b.i.d. and Prilosec 40 mg p.o. b.i.d., Klor-Con 20 mEq p.o. daily, Magda-Colace 1 p.o. b.i.d. ALLERGIES: No known drug allergies. PAST MEDICAL HISTORY: Significant chronic atrial fibrillation, hypertension, severe pulmonary artery hypertension, severe tricuspid regurgitation, dementia. PAST SURGICAL HISTORY: Intramedullary nail left femur, tonsillectomy, cataract surgery, bilateral varicose vein stripping. PHYSICAL EXAM: Patient has some confusion secondary to dementia however she is cooperative with exam. The patient's left upper extremity has an abrasion on posterior aspect left elbow, has some diffuse swelling. Has no crepitus with gentle movement. Compartments are soft. Left wrist has some diffuse swelling. Some tenderness to palpation. Able flex number fingers. Patient's right upper extremity has no obvious deformity though patient's left lower extremity her hip has discomfort with internal, external rotation, some discomfort with lateral compression. Her calf is soft. Her right lower extremity has no crepitus with gentle movement of the hip, knee or ankle. DATA: CT scan revealed a left inferior rami fracture with possible occult left superior rami fracture as well as indwelling intramedullary nail with prominent callous formation, no evidence acute abnormality to the left hip. IMPRESSION: 1. Left pubic rami fracture. 2. Probable left wrist fracture. 3. Left elbow contusion. PLAN: At this time with regards her pelvic fracture patient will be allowed be weightbearing as tolerated and will require nonoperative treatment. Will obtain x-rays not available for review regards her left wrist and elbow, will obtain these x-rays and review results. cc: Travis Prado MD
--- NOTE | 2017-07-10 20:07 | PROGRESS NOTE ---
DATE: 07/10/2017 SUBJECTIVE: Today Ms. King referred to be doing a lot better. Breathing has significantly improved. OBJECTIVE: Vital signs: Blood pressure is 103/42, pulse of 53, respiration is 18, temperature is 97.9 degrees. General: Ms. King is 87-year-old elderly female. She is in bed. HEENT: Mucosa is pink and moist. Anicteric. Acyanotic. Neck: Supple. Positive for JVD and some distention of the upper extremity, upper chest veins. Lungs: Air entry bilaterally reduced. There is a few bibasilar crepitations. Cardiovascular: Regular rate and rhythm. Did not appreciate any murmur. Abdomen: Soft. Bowel sounds are present. No hepatosplenomegaly. Extremities: No pedal edema but there were some keratotic lesions on both lower extremity and some longstanding discoloration as well. SAP SOLUTION MANAGER CONSULTANT: Patient is awake, alert, oriented x3 and follows commands. LABORATORY DATA: WBC is 5.52, hemoglobin is 7.6, platelet count of 183,000. Chemistry is reviewed. Ferritin is 37, sodium is 129, TSH 5.86. Vitamin D level is also remarkably low. ASSESSMENT: 1. Multiple pelvis fractures, my understanding is that patient has been evaluated by orthopedics and has been deemed nonsurgical so will continue physical therapy with 50% weightbearing today. 2. Iron deficiency anemia. Patient is status post 3 units of packed red blood cell transfusion and 1 iron infusion. Will continue with the p.o. iron therapy. 3. Severe pulmonary hypertension with a previous echocardiogram showing pulmonary systolic pressure of 113 consistent with severe pulmonary hypertension. Patient seems to have some fluids in the lung as well so we going to be using gentle diuresis with furosemide. 4. History of atrial fibrillation currently rate controlled. Will continue with digoxin and diltiazem. Patient is currently not on any anticoagulation because of fall risks. 5. Dementia noted. 6. Vitamin D deficiency. Will continue to replace. Subclinical hypothyroidism. 1. Protein calorie malnutrition. 2. Generalized weakness and deconditioning. Patient will be needing to go to possibly a rehab. So for today we going to discontinue the Finley catheter and continue with patient other medications. Physical therapy will evaluate the patient and go with their recommendation as per Ortho. cc: Jose Carlos Tapia MD [facility]OSPITALMassiel
[2017-07-11] MEDS: SYNTHROID PO SCH (06:48)
[2017-07-11] MEDS: PRILOSEC PO SCH ×2 (06:48→20:20)
[2017-07-11 07:11] LABS: BASO% 0.6 % (0.0-0.8); EOS# 0.06 X1000 (0.0-0.7); EOS% 1.2 % (0.0-10.0); HEMATOCRIT 25.4 % (37.0-47.0); HEMOGLOBIN 7.6 g/dL (12.0-16.0); IMM GRAN# 0.01 X1000 (0.0-0.04); IMM GRAN% 0.2 % (0.0-0.5); LYMPH# 0.59 X1000 (1.2-3.4); LYMPH% 11.9 % (20.5-51.1); MCH 21.3 PG (27-31); MCHC 29.9 g/dL (33-37); MCV 71.3 FL (81-99); MONO# 0.66 X1000 (0.11-0.59); MONO% 13.3 % (1.7-9.3); MPV 9.1 FL (7.4-10.4); NEUT% 72.8 % (42.2-75.2); PLT 206 X1000 (130-400); RBC 3.56 XMIL (4.2-5.4)
[2017-07-11 07:18] LABS: AGAP 6; BUN 9 mg/dL (8-22); CALCIUM 7.8 mg/dL (8.8-10.2); CHLORIDE 97 mmol/L (98-107); COSMO 266; POTASSIUM 3.8 mmol/L (3.5-5.1); SODIUM 134 mmol/L (136-145); TCO2 31 mmol/L (25-35)
[2017-07-11 07:56] LABS: MANUAL DIFF NEEDED? NO
[2017-07-11] MEDS: MAG-OX PO SCH ×2 (09:11→20:20)
[2017-07-11] MEDS: KLOR-CON PO SCH (09:11)
[2017-07-11] MEDS: COLACE PO SCH ×2 (09:11→20:20)
[2017-07-11] MEDS: PERICOLACE PO SCH ×2 (09:11→20:20)
[2017-07-11] MEDS: FERROUS SULFATE PO SCH ×2 (09:11→20:20)
[2017-07-11] MEDS: MORPHINE IV PRN (09:11)
[2017-07-11] MEDS: CARDIZEM CD PO SCH (09:11)
[2017-07-11] MEDS: LASIX IV SCH ×2 (09:11→20:21)
[2017-07-11] MEDS: LANOXIN PO SCH (09:12)
[2017-07-11] MEDS ORDERED: FLEET ENEMA PR ONE (14:40)
[2017-07-11 15:32] LABS: OCCULT BLOOD 1 POSITIVE (NEGATIVE)
[2017-07-11] MEDS ORDERED: VENOFER 300 MG in NS 150 ML IV ONE (17:30)
--- NOTE | 2017-07-11 17:37 | PROGRESS NOTE ---
DATE: 07/11/2017 SUBJECTIVE: Today Ms. King was sitting up in the chair. She was doing fine. She was eating her breakfast at the time of the encounter. She referred just minimal pain in the hip. OBJECTIVE: Vital signs: Blood pressure is 103/40, pulse of 63, respiration is 17, temperature 98.4 degrees. Patient is saturating 96% on room air. On general exam Ms. King is an 87-year-old female. She is in bed, not in any remarkable distress. HEENT: Mucosa is pink and moist. Neck: Supple. There is still some JVD with some distended vessels on the chest wall. Chest: Air entry is bilaterally reduced. There are a few bibasilar crepitations. Cardiovascular: Regular rate and rhythm. No murmurs, no rubs. No gallops. Abdomen: Soft, distended. No hepatosplenomegaly. Extremities: No pedal edema. There is some chronic keratotic lesions on both lower extremities with some longstanding discoloration. EDITOR AT LARGE: Patient is awake, alert and oriented. Follows some commands. LABORATORY DATA: Hemoglobin is 7.6, platelet count of 206,000. Chemistry is reviewed. Sodium is 134, potassium is 3.9, chloride is 94. I's and O's: Urine output 1080. Patient has a negative balance of 7110. ASSESSMENT: 1. Multiple pelvic fractures. Patient has been evaluated by Orthopedics and they are not surgical fractures. 2. Severe iron deficiency anemia likely secondary to chronic gastrointestinal blood loss. The patient's occult blood is positive. She came in with a blood count of 5. Hemoglobin and hematocrit is now stable after 3 units of packed red blood cell transfusion. I think she probably needs to be evaluated by gastroenterology; however, from her respiratory standpoint and the fact that she was also on Eliquis, I think we will need to just let this be evaluated on outpatient basis when she is a little bit more strong. Patient does not seem to have any overt gastrointestinal bleed. It is probably a chronic blood loss, so will can observe. 3. Severe pulmonary hypertension. Echocardiogram shows pulmonary systolic pressure of 113 mm of water consistent with severe pulmonary hypertension and this will also have to be taken into consideration if any procedure is going to be done. For now patient seems to be doing fine with gentle diuresis. 4. History of chronic atrial fibrillation. Patient is currently rate controlled on digoxin and diltiazem. Anticoagulation has been withheld because of significant low hemoglobin and hematocrit and also the fact of fall risk. 5. Vitamin D deficiency. We will continue to replace this. 6. Subclinical hypothyroidism noted. 7. Protein calorie malnutrition. 8. Generalized weakness and deconditioning, stable. Patient will continue rehab and whenever stable for discharge will need to be also transitioned to a rehab facility. PLAN: So in general I think Ms. King is relatively stable. I think she came into the hospital after a fall and the fall might have been resultant from symptomatic anemia. The fractures have been evaluated and they and nonsurgical. In terms of anemia, patient's hemoglobin and hematocrit is relatively stable. She got 3 PRBC transfusions, 1 iron transfusion, and she is going to get another iron transfusion. She had very remarkable findings on the CT scan with some varices in retroperitoneal space, lymph nodes, and the fact that the patient has significant anemia, she could potentially have a malignancy in the abdominal cavity. She will probably need scoped; however, at this point with the severe pulmonary hypertension, I am not sure if this can be done as an inpatient. Also patient was on Eliquis, so she will need to be off this for at least 5 days before any intervention can be done. Patient's hemoglobin and hematocrit is stable and she does not seem to be hemorrhaging, so I would advise that this be done on an outpatient basis if patient so desires. The patient will be discharged to either the rehab where she was coming from or could potentially go home with home health depending on the daughter's decision. cc: MD NYDIA Black
--- NOTE | 2017-07-12 04:29 | PROGRESS NOTE ---
DATE: 07/09/2017 SUBJECTIVELY: Ms. King is not able to give an interval history. She is slightly obtunded and there are no family members around. From the history, I gather Ms. King is a resident of a local retirement who was brought in because apparently she fell and was complaining of lower extremity and left upper extremity pain. The patient was brought into the emergency department yesterday. A CT scan of the pelvis was done which showed acute nondisplaced fracture to the inferior pubic ramus on the left. There is also associated additional fractures, including an occult fracture to the superior pubic ramus. There is a prominent callus formation with partial healing of the prior comminuted fracture of the left hip. There is an apparently large varices in the abdomen and pelvis in addition to large pelvic and inguinal lymph nodes and prominent edema in the body wall. The patient was subsequently admitted for medical care. OBJECTIVE: General: Ms. King is an 87-year-old, female. She is in bed, not in any remarkable distress. HEENT: Mucosa is pink and moist. Anicteric. Acyanotic. Neck: Supple. There is positive JVD. Chest: Air entry is bilaterally reduced. A few bibasilar crepitations. Cardiovascular: Irregularly irregular, but rate controlled. I did not appreciate any murmur. Abdomen: Soft, nontender. There is no hepatosplenomegaly. Extremities: No pedal edema, but there is old chronic changes with white looking lesions on both lower extremities which are multiple. PAPER INSERTER: Patient is awake, oriented to person, disoriented to place and time. Does not follow much of command, but she is able to move all her extremities. LABORATORY DATA: Has been reviewed. Hemoglobin this morning is 6.6, WBC is 5.57. Platelet count of 216. Chemistry is also reviewed. Sodium is 131. Rest of chemistry is intact. Review of previous studies shows ejection fraction. That was in 2016. Patient had an ejection fraction of 65%, but with moderate to severe degree of tricuspid regurgitation with pulmonary systolic pressure of 113, consistent with severe pulmonary hypertension. We do not have a chest x-ray this time around. ASSESSMENT: 1. Multiple pelvic fractures. Seems to be nonsurgical. We will, however, get Orthopedics to evaluate the patient. 2. Severe microcytic anemia, likely due to iron deficiency. We will do iron studies to better categorize this. 3. Fluid overload. I think patient has severe pulmonary hypertension, which is causing possibly a right-sided heart failure, which is evidenced by the anasarca. We are going to start the patient on b.i.d. IV Lasix and monitor closely her intake and output. 4. Chronic atrial fibrillation. Patient was on anticoagulation. We have discontinued this because of severe anemia. 5. We will also check the patient's TSH and electrolytes for tomorrow morning. I agree with the other plan that has been outlined in the patient's history and physical. cc: Jose Carlos Tapia MD
--- NOTE | 2017-07-12 06:22 | PROGRESS NOTE ---
DATE: 07/12/2017 CLINICAL HISTORY: The patient is an 87-year-old female who is status post fall last week, sustaining a left pubic rami fracture. She did undergo x-rays which revealed a left intra- articular distal radial fracture. PHYSICAL EXAMINATION: Patient is confused. Left upper extremity, she has removed her brace. She had some very mild swelling along the wrist. She has tenderness to palpation. She has tenderness with gentle movement. Nontender along the elbow. Her calves are soft. IMPRESSION: 1. Left pubic rami fracture. 2. Left distal radial fracture. PLAN: At this point, we will plan on nonoperative treatment. The patient may be weightbearing as tolerated to the left lower extremity. We will place her in a sugar-tong splint for the left upper extremity. The patient may weight-bear with a platform walker. The patient will follow up in the office in 10-14 days. cc: Travis Prado MD
[2017-07-12] MEDS: PRILOSEC PO SCH ×2 (07:00→20:43)
[2017-07-12] MEDS: SYNTHROID PO SCH (07:00)
--- NOTE | 2017-07-12 07:18 | Diag Imaging Result Doc PS360 ---
EXAM: CHEST-PORTABLE HISTORY: dyspnea TECHNIQUE: Portable AP COMPARISON: 12/29/2016 FINDINGS: Cardiomegaly remains. There is a small left pleural effusion similar to the prior exam with basilar atelectasis. Right lung remains clear. The vessels are not distended. IMPRESSION: Stable chest. Electronically signed by Rhys Wheeler 07/12/2017 7:16 AM
--- NOTE | 2017-07-12 08:07 | Diag Imaging Result Doc PS360 ---
EXAM: FEMUR MIN 2 VIEWS RIGHT HISTORY: fall leg pain TECHNIQUE: COMPARISON: None. FINDINGS: No fracture. No dislocation. Prominent atherosclerosis. There are mild arthritic changes to the right hip and right knee. IMPRESSION: No acute bony injury. Electronically signed by Rhys Wheeler 07/12/2017 8:05 AM
[2017-07-12] MEDS: PERICOLACE PO SCH ×2 (10:15→20:43)
[2017-07-12] MEDS: LANOXIN PO SCH (10:16)
[2017-07-12] MEDS: KLOR-CON PO SCH (10:16)
[2017-07-12] MEDS: FERROUS SULFATE PO SCH ×2 (10:16→20:43)
[2017-07-12] MEDS: MAG-OX PO SCH ×2 (10:16→20:43)
[2017-07-12] MEDS: COLACE PO SCH (10:16)
[2017-07-12] MEDS: CARDIZEM CD PO SCH (10:17)
[2017-07-12] MEDS: LASIX IV SCH (10:17)
[2017-07-12] MEDS ORDERED: TYLENOL WITH CODEINE #3 PO PRN (14:20)
--- NOTE | 2017-07-12 16:48 | PROGRESS NOTE ---
DATE: 07/12/2017 SUBJECTIVE: Ms. King is sitting up on the bedside watching TV. She denies any pain at present. OBJECTIVE: Vital Signs: Blood pressure is 131/64 with a heart rate of 64, respirations are 18, temperature is 97.8 degrees oral with room air saturations 96-98%. HEENT: Head is normocephalic, atraumatic. Pupils equal, round, react to light. EOMs are intact. Sclerae anicteric. Mucous membranes are moist. Neck: Supple with trachea midline. Cardiovascular: Regular rate and rhythm. S1 and S2 appreciated. Pulmonary: Breath sounds are diminished with some bibasilar crackles. No increased work of breathing noted. Gastrointestinal: Abdomen is soft, nontender, nondistended. Bowel sounds in all 4 quadrants. Extremities: No clubbing, cyanosis, or edema. Calves nontender. Pulses are palpable x4. Left arm with brace noted. She does have good PMS to left fingers. IMPRESSION: 1. Left pubic rami fracture. 2. Left distal radial fracture. 3. Severe iron deficiency anemia secondary to chronic gastrointestinal blood loss. 4. Positive stool for Hemoccult. 5. Severe pulmonary hypertension. 6. History of chronic atrial fibrillation. 7. Vitamin D deficiency. 8. Hypothyroid. 9. Protein calorie malnutrition. 10. General weakness and deconditioning. PLAN: We will continue with the current regimen. We will continue to trend hemoglobin and hematocrit and transfuse as appropriate. We will continue with all of her current medications. We will await rehab placement. The patient certainly will need a gastrointestinal workup. This can be on an outpatient basis as she has no overt signs of bleeding. Dictated by ROHAN Caputo for Pradeep Groves MD cc: ROHAN Caputo MD
--- NOTE | 2017-07-12 20:17 | PROGRESS NOTE ---
DATE: 07/12/2017 SUBJECTIVE: The patient states that she is feeling a little bit better. Notes that she has not really been out of bed. Has not had any cough or congestion. Has not had any shortness of breath. OBJECTIVE: Vital signs: Temperature 98.1 degrees, pulse 57, blood pressure 115/50. General: Patient is awake and alert. She is lying in the bed. She is in no respiratory distress. HEENT: Normocephalic, atraumatic. Neck: Supple. CV: Regular rate. Chest: Clear. Abdomen: Soft. Extremities: Moves all extremities. Neurologic: No focal changes. Skin: Warm and dry. No rashes. ASSESSMENT: 1. Multiple pelvic fractures. Patient has been cleared by ortho to start having physical therapy. She has not actually started physical therapy yet today. Certainly would prefer her to go to rehab, but currently she is declining this. 2. Iron deficiency anemia, stable. 3. Severe pulmonary hypertension. 1. Chronic atrial fibrillation. 2. Occult blood positive stool. Patient is on Eliquis. We have currently held this secondary to her heme-positive stool. She certainly will need to be on some type of blood thinner in the future given her atrial fibrillation. However, at this point it is prudent to hold this. We will continue to hold it 5 days and recheck her hemoglobin and hematocrit. cc: Pradeep Groves MD
[2017-07-12] MEDS: LASIX PO SCH (20:43)
[2017-07-13 06:24] LABS: HEMATOCRIT 27.5 % (37.0-47.0); HEMOGLOBIN 8.2 g/dL (12.0-16.0); MCH 21.9 PG (27-31); MCHC 29.8 g/dL (33-37); MCV 73.3 FL (81-99); RBC 3.75 XMIL (4.2-5.4)
[2017-07-13 06:27] LABS: AGAP 7; BUN 9 mg/dL (8-22); CALCIUM 7.9 mg/dL (8.8-10.2); CHLORIDE 94 mmol/L (98-107); COSMO 263; POTASSIUM 3.5 mmol/L (3.5-5.1); SODIUM 132 mmol/L (136-145); TCO2 32 mmol/L (25-35)
[2017-07-13] MEDS: PRILOSEC PO SCH (06:46)
[2017-07-13] MEDS: SYNTHROID PO SCH (06:46)
[2017-07-13] MEDS: CARDIZEM CD PO SCH (09:12)
[2017-07-13] MEDS: MAG-OX PO SCH (09:13)
[2017-07-13] MEDS: FERROUS SULFATE PO SCH (09:13)
[2017-07-13] MEDS: KLOR-CON PO SCH (09:13)
[2017-07-13] MEDS: LASIX PO SCH (09:13)
[2017-07-13] MEDS: PERICOLACE PO SCH (09:13)
[2017-07-13] MEDS: LANOXIN PO SCH (09:14)
--- NOTE | 2017-07-13 12:06 | DISCHARGE SUMMARY ---
ADMISSION DATE: 07/08/2017 DISCHARGE DATE: 07/13/2017 DIAGNOSES: 1. Left pubic rami fracture. 2. Left distal radial fracture. 3. Severe iron deficiency anemia secondary to chronic gastrointestinal blood loss. 4. Positive stool for Hemoccult with stable hemoglobin and hematocrit. 5. Severe pulmonary hypertension. 6. History of chronic atrial fibrillation, rate controlled. 7. Vitamin D deficiency. 8. Hypothyroid. 9. Protein calorie malnutrition. 10. Generalized weakness and deconditioning. 11. Code status is do not resuscitate level 1. CONSULTATION: Dr. Prado in orthopedics. DIAGNOSTICS: 1. On 07/08/2017, CT of the head and cervical spine revealed no hemorrhage, no injury with no acute fracture. 2. On 07/08/2017, CT of the pelvis revealed acute nondisplaced fracture to the inferior pubic ramus on the left with a prominent callus formation with partial healing of the prior comminuted fracture of the left hip. Apparent large varices in the abdomen and pelvis. 3. On 07/09/2017, CT of the chest, abdomen and pelvis revealed marked cardiomegaly with reflux of contrast into the inferior vena cava and hepatic veins. 4. Marked heterogenous liver attenuation which may be secondary to chronic passive congestion of the liver with other etiologies, including hepatitis or neoplasm not excluded. 5. Numerous pelvic varices and/or pelvic lymphadenopathy. 6. Perirenal varices. 7. Mild ascites, anasarca and mesenteric edema. 8. Mild constipation. 9. On 07/10/2017, left elbow x-ray revealed no acute bony injury. Left wrist x-ray revealed fracture of the distal radius. HOSPITAL COURSE: Ms. King was admitted after found having a pelvic fracture, as well as left radial fracture that she sustained after a fall 4 days prior. She was seen by orthopedics. Sugar- tong was applied to her left wrist. Physical therapy was consulted for weightbearing as tolerated with non operative treatment at present. She does have a history of chronic anemia and she was noted to have a hemoglobin of 5.6 and hematocrit of 18.8. On admission she did receive 3 units of packed cells. She has stayed 7.6 to 8.2 and 25-27 since transfusion. She did have a Hemoccult- positive stool. No active bleeding has been found. It should be noted the patient is on Eliquis for atrial fibrillation which has been held since admission. Electrolytes were monitored and she did have a TSH of 5.86. We did continue her home medications. She has been noted to have a heart rate that has been primarily in the 48 it looks like 56 range. Digoxin has been held and a dig level checked this morning was 0.7. We will continue to hold the digoxin as well as Cardizem at present. In regards to her Eliquis, she will be transferred to rehab with Eliquis being held. A CBC and CMP will be drawn in 5 days and, at that time, the facility director can decide on restarting Eliquis. Of course, if she has any cinthya bleeding she will be evaluated by gastroenterology. DISCHARGE PHYSICAL EXAMINATION: Cardiovascular: Irregularly irregular rate and rhythm. S1 and S2 are appreciated. Pulmonary: Breath sounds are clear with no increased work of breathing noted. Gastrointestinal: Abdomen is soft, nontender, nondistended with bowel sounds in all 4 quadrants. Extremities: No clubbing, cyanosis, or edema. Pulses are palpable x4. She does have a sugar-tong to her left lower arm with positive PMS noted in all 5 fingers. Discharge Vital Signs: Blood pressure is 129/59 with a heart rate of 53, respirations 18, temperature 98 degrees with O2 saturations of 96% to 100% on room air. DISCHARGE ACTIVITY: Will be non weight bearing as per physical therapy's recommendations and facility protocol. DISCHARGE MEDICATIONS: 1. Ativan 0.5 p.o. q. 6-8 hours p.r.n. anxiety. 2. Aspirin 81 mg daily. 3. Synthroid 50 mcg daily. 4. Lasix 40 mg b.i.d. 5. Klor-Con 20 mEq daily. 6. Prilosec 40 at 7 a.m. and 9 p.m. 7. Magnesium Oxide 400 mg b.i.d. 8. Magda-Colace one b.i.d. 9. Tylenol 650 q. 6 hours p.r.n. 10. Tylenol with codeine one every 4-6 hours p.r.n. pain. 11. She will hold Lanoxin, as well as Cardizem CD, due to heart rate in the 40s to 50s. This will be restarted per the instructions of the facility medical/surgery registered nurse. FOLLOWUP: 1. She needs to follow up with GI. She will certainly need an outpatient workup. 2. Orthopedics, Dr. Prado, in 2 weeks. 3. She is being discharged to rehab in stable condition via EMS transport. Dictated by ROHAN Caputo for Pradeep Groves MD cc: ROHAN Caputo MD
[2017-07-13 12:25] VITALS: BP 125/56
--- NOTE | 2017-07-14 04:55 | PROGRESS NOTE ---
DATE: 07/13/2017 DISCHARGE DIAGNOSES: 1. Chronic atrial fibrillation. 2. Multiple pelvic fractures with frequent falls and generalized weakness. The patient was seen in the hospital this morning by myself. She will be discharged to rehab when bed is available. We will continue to follow. She unfortunately is too weak and fatigued to be able to get out of bed and care for herself at home. Vital signs are stable. Of note, she did have occult blood positive. We will continue to hold Eliquis for the next 4-5 days. If she has any more bleeding, certainly will need to have a Hemoccult checked at rehab. If she has any more bleeding she will need to have endoscopy. If not, will restart her Eliquis and then again rechecking Hemoccult in a week. cc: Pradeep Groves MD
== END 2017-07-13 14:36 ==
LOC: P.ED 15:55 → P.MEDSURG 21:04 → SUATTDRO 21:04
PROVIDERS: ATTEND Family Medicine